=== PATIENT | male | born 1960 | race Caucasian/White ===

== ENCOUNTER → 2021-04-02 02:25 | Outpatient (CLI) | payer BC, SELFPAY ==
[2021-04-02 19:43] LABS: SARS-CoV-2 RNA PCR Negative
== END ==
PROVIDERS: Visit Provider Surgery
DX: Z01.812 Encounter for preprocedural laboratory examination (principal); Z20.822 Contact with and (suspected) exposure to COVID-19
CPT/HCPCS: C9803; U0003; U0005

== ENCOUNTER 2021-04-06 03:00 | Day surgery (SDC) | payer BC, SELFPAY ==
[2021-03-25 13:35] VITALS: BMI 37.6
[2021-04-06 07:04] VITALS: BP 143/78; PULSE 82; RESP 18; TEMP 36.7; O2SAT 94; BMI 38.8
[2021-04-06] MEDS: LACTATED RINGERS 1,000 ML 30 ML IV CONT (07:32)
[2021-04-06] MEDS: KETOROLAC 15 MG/ML VIAL (*BKC) IV PUSH (07:33)
[2021-04-06] MEDS: ACETAMINOPHEN 500 MG TABLET 1000 MG PO (07:33)
--- NOTE | 2021-04-06 07:37 | WPDANESEPPF ---
Anes - Initial Pre Proc Eval Procedure: Operation Date: 04/06/21 08:30 Proposed Procedures p Umbilical Hernia Repair with Mesh - Bryson Thomas MD Date/Time: 04/06/21 07:37 Surgeon: Bryson Thomas MD Pre Op Diagnosis: umbilical hernia Patient Data Age: 60 Gender: M Height: 1.8 m Weight: 126.4 kg Last Vital Signs Temp 36.7 C 04/06/21 07:04 Pulse 82 04/06/21 07:04 Resp 18 04/06/21 07:04 BP 143/78 H 04/06/21 07:04 Pulse Ox 94 04/06/21 07:04 Allergies Allergy/AdvReac Type Severity Reaction Status Date / Time Penicillins Allergy Mild unsure was Verified 04/06/21 06:57 told as a child Home Medications Medication Instructions Recorded Confirmed Type ibuprofen 600 mg PO Q6H PRN 03/25/21 04/06/21 History Patient hx anesthesia problems: none Family hx anesthesia problems: none [facility] Past Medical History Medical History (Updated 04/06/21 @ 07:37 by Garcia Dixon DO) CRISTEL (obstructive sleep apnea) borderline - no CPAP Surgical History Surgical History (Updated 03/21/21 @ 13:27 by Tanja De Leon [facility]) History of colonoscopy 5 yrs ago Family History Family History (Updated 03/04/21 @ 10:41 by Khushboo Clifford) Father Heart attack Malignant neoplasm of prostate Social History Social History Years smoked: 20 Smoking status: Current some day smoker Alcohol intake: current Drinks per week: 10 Substance use: never Substance use type: does not use Living arrangements: with family Spiritual care concerns: No Anes - Eval Final PreProcedure Day of Procedure 04/06/21 07:37 Patient weight: obese Heart: regular rate and rhythm Lungs: clear to auscultation and normal air movement Airway: Mallampati scale class II Neurological: alert and oriented Last oral intake: >/= 8 hours ASA classification: III Emergent: no Anesthetic plan: proceed Anesthesia type and monitoring: general GIVS and standard monitoring Informed Consent: The patient's anesthetic plan and its attendant risks and benefits were discussed with the patient/family/POA. Questions were solicited and answers provided to the satisfaction of the patient/family/POA.
--- NOTE | 2021-04-06 07:47 | SUR.PREOP ---
PT REQUESTING [place]ING BAND BE CUT OFF. VERY TIGHT. BILAT HANDS HAVE MULTIPLE CUTS. 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
--- NOTE | 2021-04-06 08:20 | WPDHPUPDATE1 ---
History and Physical Update Update Date/Time: 04/06/21 08:20 History and Physical has been reviewed, including an updated exam of the patient. There are NO changes in the patient's condition. Risks, benefits, and alternatives have been discussed and questions answered. Patient agrees to proceed with procedure.
[2021-04-06] MEDS: ceFAZolin 3 GM/D5W 100 ML 100 ML IVPB (08:33)
--- NOTE | 2021-04-06 09:14 | SUR.OPER ---
PARIETEX 6.6CM [id number] 2025-06-18. UMBILICAL
[2021-04-06 09:47] VITALS: BP 137/73; PULSE 79; RESP 18; TEMP 36.4; O2SAT 94
--- NOTE | 2021-04-06 09:49 | PM.PROC ---
Procedure Note - Detailed Date of procedure: 04/06/21 Pre-op diagnosis: umbilical hernia Umbilical hernia Post-op diagnosis: same Procedure performed: Umbilical hernia repair with 6.6 cm Parietex underlay mesh Description of procedure: Patient was taken to the operating room and IV sedation was administered. Prep and drape was carried out. The proposed incision along the upper margin of the umbilicus was marked on the skin. Local anesthetic was infiltrated into the skin and the deeper subcutaneous tissues. Incision was made and dissection was carried down through the skin and to the hernia sac. The sac was then dissected free from the umbilical skin and the surrounding subcutaneous tissues. It was dissected down to its neck. Additional local anesthetic was infiltrated into the neck and the fascia surrounding the neck of the hernia sac. The sac was then amputated at its neck. The subcutaneous was undermined around the hernia defect. Additional local was infiltrated around the fascia. I placed a finger inside the hernia defect and checked for any abdominal wall adhesions in the area. None were found. No other hernias were noted. A 6.6 cm Parietex igiugig was chosen. It was folded and placed in the defect. Once it symmetrically covered the defect, I placed cranial and caudal transfascial sutures of 0 Ethibond. These sutures were placed in such a fashion that, when tied, they would advance the edges of the hernia defect towards 1 another. These sutures were tied and had the desired effect. Right and left lateral trans fascial sutures of 0 Ethibond were then placed. I closed the hernia defect with [id number] mattress sutures of 0 Ethibond. The repair looked quite satisfactory. I then infiltrated additional local all around the areas of the repair. The umbilical skin was tacked to the fascia with 3 0 Vicryl suture. The subcutaneous was closed with 3 0 Vicryl. Subcuticular interrupted 4 O Vicryl skin stitches were placed. The skin was then closed with running 4 0 Monocryl subcuticular suture. Wound was dressed with Exofin surgical adhesive. The patient was awakened and taken to recovery in good condition. Counts were correct x2. Implants: 6.6 cm Parietex hernia mesh Anesthesia: MAC (G IV S) and local (0.5% Marcaine with Exparel) Surgeon: Bryson Thomas MD Automatic I Threading Machine Feeder: Tiffany COTRES Estimated blood loss (mL): 5 Drains: No Packing: No Pathology: none sent Complications: None Condition: stable Disposition: same day Findings: 18 millimeter hernia defect
[2021-04-06 10:15] VITALS: BP 140/68; PULSE 78; RESP 20; O2SAT 94
--- NOTE | 2021-04-06 10:25 | SUR.PHASEII ---
1000- assisted pt up to recliner family member in room.
[2021-04-06 10:45] VITALS: BP 127/75; PULSE 66; RESP 18
== END 2021-04-06 11:00 | disposition home or self-care (01) ==
PROVIDERS: PCP Internal Medicine; Visit Provider Surgery
PROC: (CPT 49585; principal; 2021-04-06 08:30)
DX: K42.9 Umbilical hernia without obstruction or gangrene (principal); G47.33 Obstructive sleep apnea (adult) (pediatric); F17.200 Nicotine dependence, unspecified, uncomplicated; E66.9 Obesity, unspecified; Z68.38 Body mass index [BMI] 38.0-38.9, adult
CPT/HCPCS: 49585; A9270; C1781; C9290; C9803; J0690; J1885; J2250; J2405; J2704; J3010; J7120; U0003; U0005

== ENCOUNTER 2024-09-15 12:33 | Outpatient (CLI) | payer MEDICARE, SELFPAY ==
--- NOTE | ~2024-09-15 | CT_ITS ---
EXAMINATION: CT soft tissue neck wo con DATE: 09/15/2024 13:34 INDICATION: Localized swelling, mass and lump, neck. TECHNIQUE: Computed tomography (CT) of the neck was performed without intravenous contrast. Automated exposure control and iterative reconstruction technique were employed. The dose-length product was 5 19.40 mGy-cm. COMPARISON: None FINDINGS: There is right high and mid internal jugular chain lymphadenopathy, right submandibular lym phadenopathy, and right spinal accessory chain lymphadenopathy. For example, a maggy mass in right hi gh internal jugular chain measures 5.9 x 3.2 cm. There is mild mucosal thickening in the paranasal si nuses. The mastoid air cells are normal. There is mild cervical spondylosis. IMPRESSION: 1. Right-sided cervical lymphadenopathy, consistent with metastatic disease. Ultrasound-guided core n eedle biopsy is recommended. Reviewed, dictated and finalized at location B. IMPRESSION: 1. Right-sided cervical lymphadenopathy, consistent with metastatic disease. Ul trasound-guided core needle biopsy is recommended.
== END 2024-09-15 12:34 | disposition home or self-care (01) ==
PROVIDERS: PCP Family Medicine; Visit Provider Family Medicine
DX: R22.1 Localized swelling, mass and lump, neck (principal)
CPT/HCPCS: 70490

== ENCOUNTER 2024-10-21 10:03 | Outpatient (CLI) | payer MEDICARE, SELFPAY ==
--- NOTE | ~2024-10-21 | PE_ITS ---
EXAMINATION: PET skull to mid thigh DATE: 10/21/2024 13:17 INDICATION: Right neck mass. TECHNIQUE: Blood glucose level was 115 mg/dL. 10.960 mCi of 18-fluorodeoxyglucose (18-FDG) was admini stered i.v. Low dose computed tomography (CT) images were acquired from the base of the brain to the proximal thighs for attenuation correction and anatomic localization. Automated exposure control was employed. Dose-length product (DLP) was 1496 mGy-cm. Positron emission tomography (PET) images were a cquired in the same distribution. COMPARISON: Neck CT 09/15/2024 FINDINGS: Head/neck: There is confluent right high and mid internal jugular chain lymphadenopathy measuring 8.0 x 4.2 cm with maximum SUV of 37.1. There is a mildly enlarged right submandibular node with increase d increased activity. There is a normal-sized right submandibular node with increased activity. There is a borderline-enlarged left mid internal jugular chain lymph node with increased activity. There i s a normal-sized left high internal jugular node with increased activity. There is mucosal thickening in the oropharynx bilaterally with increased activity. There is increased activity at the glottis an teriorly without abnormal CT correlate. Chest: There is a 1.7 cm nodule in right lung lower lobe with maximum SUV of 12.2. Calcified right hi lar lymph nodes are consistent with old edematous disease. No pleural effusion. Cardiomegaly is noted . No pericardial effusion. Abdomen/pelvis/proximal thighs: There is diffuse hepatic steatosis. Calcifications in the spleen are consistent with old granulomatous disease. The gallbladder, pancreas, adrenal glands, and right kidne y are normal. There is a 1.8 cm cyst in left kidney. There is diverticulosis of the colon without braden dence of diverticulitis. There are no dilated loops of bowel. The prostate is mildly enlarged. There are no pathologically enlarged lymph nodes. There is no free intraperitoneal fluid. There is no osseo us malignancy. IMPRESSION: 1. Bilateral cervical lymphadenopathy with increased activity, consistent with metastatic disease. 2. Mucosal thickening in the oropharynx with increased activity, which is indeterminate for primary m alignancy. 3. 1.7 cm nodule in right lung lower lobe with increased activity, which may be metastatic disease or primary bronchogenic carcinoma. CT-guided biopsy is recommended. Reviewed, dictated and finalized at location A. GE WEIGHER IMPRESSION: 1. Bilateral cervical lymphadenopathy with increased activity, consistent with metastatic disease. 2. Mucosal thickening in the oropharynx with increased activity, which is indet erminate for primary malignancy. 3. 1.7 cm nodule in right lung lower lobe with increased activity, which may be metastatic disease or primary bronchogenic carcinoma. CT-guided biopsy is sabrina mmended.
[2024-10-21 10:54] LABS: Glucose Point of Care 115 mg/dl (65-105)
== END 2024-10-21 10:04 | disposition home or self-care (01) ==
PROVIDERS: PCP Family Medicine
DX: R22.1 Localized swelling, mass and lump, neck (principal); C44.42 Squamous cell carcinoma of skin of scalp and neck
CPT/HCPCS: 78815; A9552

== ENCOUNTER 2025-06-01 01:53 | Day surgery (SDC) | payer MEDICARE, SELFPAY ==
[2025-05-20 15:34] VITALS: BMI 31.8
--- NOTE | 2025-05-20 15:45 | PC.NURSE ---
Patient requested to do the Golytely prep and asked for it to be sent into pharmacy. He states it is what he did last time and it was easy. Instructions sent to address verified by patient. Prescription sent per Dr. Mcdaniel for Golytely to pt pharmacy.
--- NOTE | 2025-05-20 15:47 | PC.NURSE ---
Spoke with __patient regarding medication _xarelto_. _Patient verbalizes understanding that the last dose is to be taken on 05/28/25-pt states oncologist told him 5 days prior to procedure and for 5 days after, I explained what Jonas Zhong requires and he can discuss with his oncologist which to follow and the Endoscopist will instruct them when to restart after the procedure.
--- OUTSIDE RECORDS SUMMARY | 2025-06-01 01:57 | XMS_ITS ---
Author Organization [facility] Address [address] [place] [address] Care Team Providers Care Accounting Software Specialist Name Role Phone Zeeshan Roberson MD Primary Care Provider Amy Elizabeth LCSW Unavailable Unavaila Zeeshan Warner MD Unavailable Bladimir Elise MD Unavailable [phone] Keith Barragan MD Unavailable + Active Problems Patient Care Coordination No te Formatting of this note migh t be different from the original. This is a 64-year-old male presenting to us at the request of Dr. Keith Barragan for evaluation of a pulmonary nodule. He has a medical history significant for hyperlipidemia. He is a former smoker. He recently presented with complaints of a slowly enlarging right neck mass that was 1st noted in July of 2024. At that time, he denied any voice changes, weight loss, dysphagia or pain. He initially underwent a CT of the neck that was performed at [facility] on 09/15/2024 that demonstrated multiple enlarged right cervical and parapharyngeal nodes with no clear primary. 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 He underwent a repeat ultrasound-guided core needle biopsy of a right level 2 cervical lymph node on 10/20/2024. 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 He underwent a PET scan on 10/21/2024 at [facility]. This was consulted at our facility. There is a bulky maggy conglomerate in the right neck centered at level 2 measuring at least 6.5 cm. This has a max SUV of 37.8. The conglomerate extends medially posterior to the mandible and exerts mass effect on the oropharynx, abutting the right palatine tonsil. The right carotid space is not distinctly separable from the conglomerate and the parapharyngeal fat is displaced anteriorly. There are some internal calcifications within the maggy conglomerate. There is additional markedly hypermetabolic cervical lymphadenopathy on the right levels 1b, 3, 4, and 5. There are also several moderately hypermetabolic left level 2 nodes and a mildly hypermetabolic left level 4/supraclavicular node. There was mild uptake in an 8 mm low left axillary node. Which is nonspecific. They are symmetric, moderate, activity in the bilateral palatine tonsils which is nonspecific. There is also focal uptake at the anterior commissure of the larynx. There was a 19 mm right lower lobe pulmonary nodule with an SUV of 12.2. There is focal mild uptake in the T11 vertebral body without clear CT correlate but not clearly related to degenerative disease. A similar focus is seen in S1. The patient was referred to have a CT-guided needle biopsy of the right lower lobe pulmonary nodule. This was scheduled for 11/10/2024 but was canceled due to no safe approach despite multiple breath hold attempts. It also appears that he was referred to IP for a bronchoscopic biopsy as well. It looks like this was scheduled for 11/25/2024 but was canceled. We will arrange for him to have pulmonary function testing and an updated chest CT. He is here for further surgical evaluation and discussion. Problem Noted Date Diagnosed Date Pleural effusion 02/14/2025 Snoring 01/30/2025 Assessment & Plan (01/30/2025 11:16 AM CDT): The patient presents with snoring, daytime hypersomnia and documented nocturnal arterial oxygen desaturations. He is currently using oxygen at 2 liters/minute via nasal cannula while sleeping. I have ordered a nocturnal polysomnogram with a split night protocol if necessary and no MSLT. He will follow up here in 2 months. BRAD (acute kidney injury) 01/29/2025 Assessment & Plan (01/29/2025 12:08 PM CDT): Unclear if he has been having worsening CKD Since early january he has been fluctuating with Cr from 1.6 to 1.2 , currently 1.3 Previous to that he had 0.7 to 1.2 in nov and dec. -would monitor OP and avoid nephrotoxins. (HFpEF) heart failure with preserved ejection fr action 01/29/2025 Assessment & Plan (01/29/2025 12:10 PM CDT): Recent echo 01/2025 with G1DD and EF of 65% Lower extremities swelling +2 to mid sierra. Received lasix 20 mg IV , UOP of 1700 cc Since he has nausea and decreased PO occasionally would placed him on lasix prn 40 mg for worsening leg edema or weight gain. OP follow up Shortness of breath 01/28/2025 Assessment & Plan (01/29/2025 12:11 PM CDT): -CRISTEL , obesity hypoventilation syndrome, mild hypervolemia can contribute. Here in the ED received low dose lasix iv , was placed on CPAP for short period of time. His workup unremarkable for ACS , he has chronic small to moderate pleural effusion which is likely related to his recent surgery. Currently comfortable with 92% on room air with rest. -can do 40 PO lasix PRN. -family is concerned about his hypoxia I already discussed with him and his over the phone that it is going to be difficult to get sleep study inpatient and that might take couple of days. I advised them to monitor his SPO2 only if he is symptomatic and return to ED if he has SOB or chest pain or worsening his general health, he has an appointment tomorrow with pulmonary for his sleep study. Encouraged to use o2 as needed. He might have some hypervolemia given his hx of HFpEF , his current weight 281 lbs , he told me his weight is around 275-280 , he can be prescribed lasix PRN 40 mg for worsening leg swelling or weight gain of 5 lbs over 2 days. Otherwise he can be monitored OP. Nausea 01/26/2025 Acute pulmonary embolism 01/23/2025 Lymphadenopathy, anterior cervical 01/21/2025 Hypoxia 01/21/2025 Class 3 severe obesity due t o excess calories without serious comorbidity with body mass index (BMI) of 40.0 to 44.9 in adult 01/21/2025 Acute respiratory failure with hypoxia Other acute pulmonary emboli sm, unspecified whether acute cor pulmonale present 01/20/2025 Assessment & Plan (01/29/2025 12:05 PM CDT): Cont eliquis for 6 months at least Acute hypoxic respiratory failure 01/20/2025 CRISTEL (obstructive sleep apnea) 01/20/2025 Assessment & Plan (03/31/2025 3:13 PM CDT): Due to the patient continuing to have a mask leak I will decrease the patient's BiPAP to an IPAP of 18 cm water pressure and EPAP of 14 cm water pressure. The patient is benefitting from CPAP therapy. The patient was recommended [id number] dry mouth products. 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:Clinical stage from 12/24/2024:Stage IV(cT1, cN3, pM1, p16+) - Signed by Zeeshan Pereira MD on 12/24/2024 HLD (hyperlipidemia) 12/09/2024 Assessment & Plan (12/09/2024 1:48 PM ICE MAKER): - monitor - cont home rosuvastatin Pulmonary nodule 12/04/2024 Assessment & Plan (12/10/2024 1:36 PM ICE MAKER): Robotic right lower lobe wedge, robotic right lower lobectomy and mediastinal lymph node sampling 12/08 - CT removed today - post pull removed - encourage IS - DVT ppx - PT eval/treat- recs for home with supervision - bowel regimen - post op Pain mgnt: scheduled tylenol and roscoe; PRN IV dilaudid and oxycodone - wean O2 to maintain sats > 90% - current smoker 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 Past Treatment and Therapy Plans Oncology Chemotherapy Treatment Plan Name Start Date Discontinue Date Treatment Medications Discontinue Reason Plan Provider Cycles CISplatin Weekly with Concurrent Radiation - Head and Neck 03/16/2025 CISplatin (PLATINOL)CISplati n (PLATINOL) IVPB in 250 mLdexAMETHasone (DECADRON) Therapy Complete Bladimir Elise MD 7 of 7 cycles started Radiation Treatments * Course [id number]/[id number] - 02/25/2025 Treatment Period Energy Fraction Dose Fractions Total Dose Plans Planned HN_Bilateral 01/05/2025 - 02/25/2025 200 25 / 7,000 HN_RESCAN 02/12/2025 - 02/25/2025 200 10 / 2,000 Reference Points Delivered DPV_HN 01/05/2025 - 02/25/2025 7,000 Lifetime Dose Tracking * Chemical Lifetime Dose Automatic Entry Manual Entr y DLP 1,997 mGycm 1,997 mGycm 0 mGycm
--- OUTSIDE RECORDS SUMMARY | 2025-06-01 01:57 | XMS_ITS | Clinical Summary ---
Author Organization [facility] Address [facility] [place] [address] Care Team Providers Care Doctor Of Nurse Anesthesia Name Role Phone Zeeshan Roberson MD Primary Care Provider Amy Elizabeth LCSW Unavailable Unavaila Zeeshan Warner MD Unavailable [phone] Bladimir Elise MD Unavailable [phone] Keith Barragan MD Unavailable + Allergies Active Allergy Reactions Criticality Noted Date Comments Iodinated Contrast Media Itching Low 10/02/2024 Penicillins Rash Medium 10/02/2024 Childhood allergy Medications rosuvastatin (CRESTOR) 5 mg tabletIndications: hyperlipidemia Take 1 tablet (5 mg total) by mouth nightly 09/09/20 24 Active betamethasone valerate (VALISONE) 0.1 % cream Apply topically daily as needed for irritation (eczema) 12/04/19 25 Active valACYclovir (VALTREX) 1 gram tablet Take 1 tablet (1,000 mg total) by mouth daily as needed 12/04/19 25 Active prochlorperazine (Compazine) 10 mg tabletIndications: Secondary and unspecified malignant neoplasm of lymph nodes of head, face and neck (HCC) Take 1 tablet (10 mg total) by mouth every 6 (six) hours as needed for nausea or vomiting Use first for nausea. 120 tablet 3 01/11/20 25 Active Additional Information Patient not taking.Reported on 05/11/2025 halobetasol (ULTRAVATE) 0.05 % cream Apply topically as needed 12/29/19 25 Active docusate sodium (COLACE) 100 mg capsuleIndications :constipation Take 1 capsule (100 mg total) by mouth 2 (two) times a day as needed for constipation Active acetaminophen 500 mg capsule Take 1 capsule (500 mg total) by mouth every 6 (six) hours as needed for mild pain (pain scale 1-4) Active amLODIPine (NORVASC) 2.5 mg tablet Take 1 tablet (2.5 mg total) by mouth daily 30 tablet 01/25/20 25 Active LORazepam (ATIVAN) 1 mg tablet Take 1 tablet (1 mg total) by mouth 2 (two) times a day as needed for anxiety (nausea) 60 tablet 01/28/20 25 Active Additional Information Patient not taking.Reported on 05/11/2025 furosemide (LASIX) 40 mg tablet Take 1 tablet (40 mg total) by mouth daily as needed (leg swelling , weight gain as instructed.) 30 tablet 01/30/20 25 Active ondansetron ODT (ZOFRAN-ODT) 4 mg disintegrating tablet Take 1 tablet (4 mg total) by mouth every 8 (eight) hours as needed for nausea or vomiting 20 tablet 1 01/31/20 25 Active Additional Information Patient not taking.Reported on 05/11/2025 potassium chloride ER (KLOR-CON) 20 mEq CR tablet Take 1 tablet (20 mEq total) by mouth daily 7 tablet 02/03/20 25 Active Additional Information Patient not taking.Reported on 05/11/2025 clotrimazole (MYCELEX) 10 mg eveline Take 1 tablet (10 mg total) by mouth 5 (five) times a day 35 Eveline 02/17/20 25 Active Additional Information Patient not taking.Reported on 05/11/2025 silver sulfadiazine (SILVADENE, SSD) 1 % cream Apply topically 3 (three) times a day 50 g 02/21/20 25 Active Additional Information Patient not taking.Reported on 05/11/2025 fluticasone propionate (FLONASE) 50 mcg/actuation nasal spray Administer 2 sprays into each nostril daily 16 g 3 02/25/20 25 025 Active Additional Information Patient not taking.Reported on 05/11/2025 oxyCODONE (ROXICODONE) 5 mg immediate release tabletIndications: Pain Take 1 tablet (5 mg total) by mouth every 6 (six) hours as needed for pain 30 tablet 02/27/20 Active Additional Information Patient not taking.Reported on 05/11/2025 al & mag hydroxide with simethicone-diphen hydramine-lidocain e (MAGIC MOUTHWASH) suspension 1-1-1 Swish and swallow 15 mL every 4 (four) hours as needed (mouth sores) 1260 mL 1 03/03/20 Active Additional Information Patient not taking.Reported on 05/11/2025 predniSONE (DELTASONE) 50 mg tablet Take 1 tablet (50 mg) by mouth 13 hours prior, 7 hours prior and [address] scan for contrast allergy 3 tablet 03/16/20 Active Additional Information Patient not taking.Reported on 05/11/2025 diphenhydrAMINE (BENADRYL) 50 mg capsule Take 1 capsule (50 mg) by mouth [address] scan for contrast allergy 1 capsule 03/16/20 Active Additional Information Patient not taking.Reported on 05/11/2025 rivaroxaban (XARELTO) 20 mg tablet Take 1 tablet (20 mg total) by mouth daily with breakfast 30 tablet 4 03/16/20 Active nutritional supplements liquid Take by mouth Active Active Problems Patient Care Coordination No te [...] of the neck that was performed at [facility] on 09/15/2024 that demonstrated multiple enlarged [...] underwent a PET scan on 10/21/2024 at [facility]. This was consulted at our facility. [...] from CPAP therapy. The patient was recommended dlcz-aph-xeussay dry mouth products. 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:Clinical stage from 12/24/2024:Stage IV(cT1, cN3, pM1, p16+) - Signed by Zeeshan Pereira MD on 12/24/2024 HLD (hyperlipidemia) 12/09/2024 Assessment & Plan (12/09/2024 1:48 PM LIGHT OUT EXAMINER): - monitor - cont home rosuvastatin Pulmonary nodule 12/04/2024 Assessment & Plan (12/10/2024 1:36 PM LIGHT OUT EXAMINER): Robotic right lower lobe wedge, robotic right [...] 12/02/2024 Assessment & Plan (12/09/2024 1:48 PM LIGHT OUT EXAMINER): - monitor - BMI 39.33 on admission - stereo operator screening Right lower lobe lung mass 11/13/2024 Neck mass 10/06/2024 Encounters Date Type Department Care Team Description 05/25/2025 7:42 AM CDT - 05/25/2025 11:59 PM CDT Hospital Encounter [facility] Medical Office Building [address] [address] Tonsil cancer (HCC) Discharge Disposition: Discharge to home or self care 05/13/2025 Orders Only [facility] Otol[facility]ology Head-Neck Division [address] [place] [address] [address] [place] [address] Keith Barragan MD Tonsil cancer (HCC) (Primary Dx); Lymph edema 05/11/2025 2:30 PM CDT Office Visit [facility] Pulmonary [address] [place] [address] Marie Simmons MD Other acute pulmonary embolism, unspecified whether acute cor pulmonale present (HCC) (Primary Dx); Pleural effusion on right; Diastolic congestive heart failure, unspecified HF chronicity (HCC); Primary hypertension 05/11/2025 Telephone [facility] Otolaryngology Head-Neck Division [address] [place] [phone] Sindy Mcgregor RN 05/07/2025 Orders Only [facility] Otolaryngology Head-Neck Division [address] [place] [phone] Keith Barragan MD Tonsil cancer (HCC) (Primary Dx); Lymph edema 05/04/2025 12:30 PM CDT Office Visit [facility] [address] [place] [address] [address] [place] [address] Bladimir Elise MD Tonsil cancer (HCC); Secondary and unspecified malignant neoplasm of lymph nodes of head, face and neck (HCC) 05/04/2025 12:00 PM CDT Lab [facility] at [address] [place] [address] Tonsil cancer (HCC); Secondary and unspecified malignant neoplasm of lymph nodes of head, face and neck (HCC) 05/04/2025 9:00 AM CDT Office Visit [facility] ENT [address] [facility] Medical Office Building [address] [place] [address] Keith Barragan MD Tonsil cancer (HCC) (Primary Dx) 04/27/2025 4:50 PM CDT - 04/27/2025 11:59 PM CDT Hospital Encounter [facility] [address] [place] [address] Tonsil cancer (HCC); Secondary and unspecified malignant neoplasm of lymph nodes of head, face and neck (HCC) Discharge Disposition: Discharge to home or self care 04/16/2025 Telephone [facility] Medical Office Building 2 Radiation Oncology [address] [place] [phone] Eugenia Garcia 04/10/[address] [facility] Head [facility] Neck Tumor Center [address] [place] [address] [place] [address] Yolanda Pereira, WHITNEY Navigation follow up-post tx check in; End Navigation 04/08/2025 8:30 AM CDT Office Visit [facility] Medical Office Building 2 Radiation Oncology [address] [place] [address] Zeeshan Pereira MD Tonsil cancer (HCC) (Primary Dx) 03/31/2025 3:00 PM CDT Office Visit [facility] Pulmonary [address] [place] [phone] Alana Aleman NP CRISTEL (obstructive sleep apnea) 03/31/[address] [place] [phone] Marie Simmons MD Request For Order(s) 03/31/[address] [place] [address] Ray Lowery MD Orders Only 03/16/2025 9:00 AM CDT Office Visit [facility] On[facility] [address] [place] [phone] Bladimir Elise MD Tonsil cancer (HCC) (Primary Dx); Secondary and unspecified malignant neoplasm of lymph nodes of head, face and neck (HCC) 03/16/2025 8:[address] [facility] at [address] [address] Tonsil cancer (HCC); Secondary and unspecified malignant neoplasm of lymph nodes of head, face and neck (HCC) 03/05/2025 Documentation [facility] Medical Office Building 2 Radiation Oncology [address] [place] [address] Maty Mcdonald, RN Med Management ([employer] medication needing updated) 03/03/2025 Telephone [facility] Oncology [address] [place] [phone] Janet Burns RN 03/02/2025 10:[address] [facility] at [address] [phone] Secondary and unspecified malignant neoplasm of lymph nodes of head, face and neck (HCC) (Primary Dx); Tonsil cancer (HCC) 03/02/2025 9:00 AM CDT Telemedicine [facility] Medical Office Building 2 Radiation Oncology [address] [place] [phone] Secondary and unspecified malignant neoplasm of lymph nodes of head, face and neck (HCC) (Primary Dx); Dehydration; Obesity, morbid (HCC) from Last 3 Months Immunizations Immunization Administration Dates Next Due Influenza, Quadrivalent, Spl it, Intramuscular 09/14/2014 Influenza, Quadrivalent, Spl it, Preservative Free, Intramuscular 09/19/2021,09/20/2020,08/25/2018 Influenza, Trivalent, High D ose, Split, Preservative Free, Intramuscular 12/09/2024 Influenza, Trivalent, Preser vative Free, Intramuscular 09/01/2015 Pneumococcal Conjugate Pcv20 01/21/2024 Surgical History Surgery Date Site/Laterality Comments US GUIDED BIOPSY LYMPH NODE SUPERFICIAL LEFT N/A LUNG SURGERY 12/08/2024 Medical History Medical History Date Comments Squamous cell cancer of scalp and skin of neck Hyperlipidemia Lung cancer (HCC) CRISTEL (obstructive sleep apnea) 01/20/2025 Nausea 01/26/2025 Family History Medical History Relation Name Comments Anesthesia problems Neg Hx Social History Tobacco Use Types Packs/Day Years Used Date Smoking Tobacco: Former Cigarettes 0.1 10.8 2 014 - 09/19/2024 Smokeless Tobacco: Never Tobacco Cessation:Counseling Given: Not Answered Comments:Casual smoker for 10 years [facility] Utilities Answer Date Recorded In the past 12 months has th e electric, gas, oil, or water company threatened to shut off services in your home? No 01/21/2025 Social Connection and Isolat ion Panel [NHANES] Answer Date Recorded In a typical week, how many times do you talk on the phone with family, friends, or neighbors? More than three times a week 01/21/2025 How often do you get togethe r with friends or relatives? More than three times a week 01/21/2025 How often do you attend [facility] or hindu services? More than 4 times per year 01/21/2025 Do you belong to any clubs o r organizations such as quaker groups, unions, fraternal or athletic groups, or school groups? Yes 01/21/2025 How often do you attend meet ings of the clubs or organizations you belong to? More than 4 times per year 01/21/2025 Are you , , di vorced, , never , or living with a partner? 01/21/2025 AUDIT-C Answer Date Recorded Q1: How often do you have a drink containing alcohol? 2-4 times a month 02/16/2025 Q2: How many drinks containi ng alcohol do you have on a typical day when you are drinking? Patient does not drink Q3: How often do you have si x or more drinks on one occasion? Monthly 02/16/2025 Overall Financial Resource Strain (CARDIA) Answe r Date Recorded How hard is it for you to pa y for the very basics like food, housing, medical care, and heating? Not hard at all 01/21/2025 PHQ-2 Answer Date Recorded PHQ-2 Total Score 0 10/07/2024 Hunger Vital Sign Answer Date Recorded Within the past 12 months, y ou worried that your food would run out before you got the money to buy more. Never true 01/22/20 25 Within the past 12 months, t he food you bought just didn't last and you didn't have money to get more. Never true 01/21/2025 PRAPARE - Transportation Answer Date Re corded In the past 12 months, has l ack of transportation kept you from medical appointments or from getting medications? No 03/2025 In the past 12 months, has l ack of transportation kept you from meetings, work, or from getting things needed for daily living? No 01/21/2025 Housing Stability Vital Sign Answer Brian e Recorded In the last 12 months, was t here a time when you were not able to pay the mortgage or rent on time? No 01/21/2025 In the past 12 months, how m any times have you moved where you were living? 0 01/21/2025 At any time in the past 12 m [facility], were you homeless or living in a residential (including now)? No 01/21/2025 Personal Safety Answer Date Recorded Have you ever been in or are you currently in a harmful physical or emotional relationship or is someone making you feel afraid or unsafe? Denies 02/23/2025 Sex and Gender Information Value Date Recorded Sex Assigned at Not on file Legal Sex Male 8:46 AM CDT Gender Identity Not on file Sexual Orientation Not on file Obstetrics History Last Filed Vital Signs Vital Sign Reading Time Taken Comments Blood Pressure 118/64 05/11/2025 2:12 PM CDT Pulse 78 05/11/2025 2:12 PM CDT Temperature 36.2 C (97.1 F) 05/11/2025 2:12 PM CDT Respiratory Rate 16 05/11/2025 2:12 PM CDT Oxygen Saturation 98% 05/11/2025 2:12 PM CDT Inhaled Oxygen Concentration - - Weight 106.6 kg (235 lb) 05/11/2025 2:12 PM CDT Height 180.3 cm (5' 11) 05/11/2025 2:12 PM CDT Body Mass Index 32.78 05/11/2025 2:12 PM CDT Plan of Treatment Health Maintenance Due Date Last Done Comments Colon Cancer Screening-Colonoscopy 1960 Hepatitis C Screening 1960 Prostate Cancer Screening-PSA 1958 DTaP/Tdap/Td Vaccine (1 - Tdap) 1969 Hepatitis B Screening 1976 Zoster Vaccine (1 of 2) 1977 Abdominal Aortic Aneurysm (A AA) Screen 2023 Well Visit 65+ 2023 Covid-19 Vaccine (2023-12 5 season) 2024 09/19/2021, 03/06/2021, 02/13/2021 Influenza Vaccine (#1) 2025 , 09/19/2021, 09/20/2020, Additional history exists Depression Screening 10/07/2025 10/07/2024 Fall Risk Assessment 01/23/2026 01/23/2025, 12/24/2024, 10/13/2024 Pneumococcal vaccine 65+ Completed 01/21/2024 Procedures Procedure Name Priority Date/Time Associated Diagnosis Comments PET/CT FDG SKULL TO THIGH Schedule Routine, Read Routine (OP Routine) 05/25/2025 9:49 AM CDT Tonsil cancer (HCC) POCT GLUCOSE DEVICE Routine 05/25/2025 8 :25 AM CDT EGFR Routine 05/04/2025 12:06 PM CDT Tonsil cancer (HCC) Secondary and unspecified malignant neoplasm of lymph nodes of head, face and neck (HCC) DIFFERENTIAL AUTO Routine 05/04/2025 12: 06 PM CDT Tonsil cancer (HCC) Secondary and unspecified malignant neoplasm of lymph nodes of head, face and neck (HCC) CBC WITH AUTO DIFFERENTIAL Routine 05/04/2025 12:06 PM CDT Tonsil cancer (HCC) Secondary and unspecified malignant neoplasm of lymph nodes of head, face and neck (HCC) COMPREHENSIVE METABOLIC PANEL Routine 05/04/2025 12:06 PM CDT Tonsil cancer (HCC) Secondary and unspecified malignant neoplasm of lymph nodes of head, face and neck (HCC) CT SOFT TISSUE NECK W CONTRAST Schedule Routine, Read Routine (OP Routine) 04/27/2025 5:16 PM CDT Tonsil cancer (HCC) Secondary and unspecified malignant neoplasm of lymph nodes of head, face and neck (HCC) CT CHEST W CONTRAST Schedule Routine, Read Routine (OP Routine) 04/27/2025 5:16 PM CDT Tonsil cancer (HCC) Secondary and unspecified malignant neoplasm of lymph nodes of head, face and neck (HCC) POCT CREATININE FOR CONTRAST EVALUATION Routine 04/27/2025 5:04 PM CDT EGFR Routine 03/16/2025 8:36 AM CDT Tonsil cancer (HCC) Secondary and unspecified malignant neoplasm of lymph nodes of head, face and neck (HCC) DIFFERENTIAL AUTO Routine 03/16/2025 8:3 6 AM CDT Tonsil cancer (HCC) Secondary and unspecified malignant neoplasm of lymph nodes of head, face and neck (HCC) CBC WITH AUTO DIFFERENTIAL Routine 03/16/2025 8:36 AM CDT Tonsil cancer (HCC) Secondary and unspecified malignant neoplasm of lymph nodes of head, face and neck (HCC) COMPREHENSIVE METABOLIC PANEL Routine 03/16/2025 8:36 AM CDT Tonsil cancer (HCC) Secondary and unspecified malignant neoplasm of lymph nodes of head, face and neck (HCC) from Last 3 Months Results * PET/CT FDG Skull to Thigh (05/25/2025 9:49 AM CDT) Anatomical Region Laterality Modality N/A Positron Emissio n Tomography (PET) 05/25/2025 9:59 AM CDT Narrative 05/25/2025 10:14 AM CDT EXAM DESCRIPTION: PET/CT FDG SKULL TO THIGH REASON FOR STUDY: Or pharyngeal cancer, 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 RADIOPHARMACEUTICAL: 10.1 mCi F-18 Fluorodeoxyglucose (FDG) via a right antecubital IV site. TECHNIQUE: The patient's fasting blood glucose level, measured by glucometer before injection of FDG, was 104 mg/dL. After intravenous administration of FDG, noncontrast CT images were obtained for attenuation correction and for fusion with emission PET images to allow for anatomical localization of PET findings. Emission PET images were then obtained. The area imaged spanned the region from the skull base to the thighs. The uptake time was approximately 60 minutes. SUV max was normalized to body weight. COMPARISON: PET-CT 10/21/2024. CT neck and CT chest 04/27/2025. FINDINGS: For reference, a region of interest of the ascending thoracic aorta has a maximal SUV of 3.8 . For reference, a region of interest of the right hepatic lobe of the liver has a maximal SUV of 5.3. Head: No abnormal FDG activity of the included brain parenchyma. Neck: Positive post treatment changes noted compared to the prior PET-CT. The infiltrative soft tissue involving right level II, the carotid space and extending to the oropharynx has substantially decreased in activity. The area of remaining soft tissue is now approximately 5.8 x 2.9 cm with maximal SUV 4.0, without a discrete intense site of uptake. Previously this was 6.8 x 4.6 cm with maximal SUV 37.8 as remeasured. Along the posterior margin there is a more discrete site of activity 1.5 cm with maximal SUV 4.3 most likely an adjacent lymph node. Post treatment changes are noted in the soft tissues with edema and induration. There is prominence of the palatine tonsils with the narrowed oropharynx. The previous hypermetabolic left supraclavicular and right supraclavicular lymph nodes have resolved. Chest: There is a new hypermetabolic anterior mediastinal lymph node adjacent to the right brachiocephalic vein, lateral to the brachiocephalic artery, 1 x 0.7 cm, maximal SUV 7.6. There is an additional small pre-vascular anterior mediastinal lymph node 0.5 cm anterior to the SVC and ascending thoracic aorta, maximal SUV 4.3. No other hypermetabolic thoracic lymph nodes. Postsurgical changes are seen from right lower lobectomy. No hypermetabolic right lung nodules. There is a small right pleural effusion. There is a left lower lobe pulmonary nodule which is hypermetabolic, this is new from the prior PET-CT, 1.0 x 1.0 cm, maximal SUV 5.6. Heart size is normal. There is no pericardial effusion. Abdomen and Pelvis: Liver and spleen demonstrate normal activity without focal abnormal FDG uptake. Mild hepatic steatosis. Gallbladder unremarkable. Pancreas and both adrenal glands demonstrate normal FDG activity. Normal excretion of FDG from the kidneys with expected accumulation of radiotracer in the urinary bladder. There are no hypermetabolic lymph nodes in the abdomen and pelvis. Prominent amount of fecal material is seen in the colon. Appendix unremarkable. Mild enlargement of the prostate. Physiologic bowel activity is present. Bones: Bone windows demonstrate no hypermetabolic acute or aggressive osseous lesions. There is diminished activity in the cervical spine most likely related to prior radiation. IMPRESSION: 1. Positive partial local post treatment response with substantial decrease in size and activity of the infiltrative right neck mass. There is some residual activity especially of a marginal lymph node which may reflect residual disease. 2. Resolution of the previous hypermetabolic bilateral supraclavicular lymph nodes. 3. Hypermetabolic anterior mediastinal lymph nodes most likely metastatic. 4. New hypermetabolic left lower lobe pulmonary nodule most likely metastatic. 5. Postsurgical changes of right lower lobectomy. THIS IS AN ELECTRONICALLY VERIFIED FINAL REPORT 05/25/2025 10:14 AM - Electronically signed by Shun Woods M.D. CH: SANAZ Report ID: [id number] Reading Location: [place] [address] Procedure Note Shun Woods Jr., MD - 05/25/2025 EXAM DESCRIPTION: PET/CT FDG SKULL TO THIGH REASON FOR STUDY: Or pharyngeal cancer, status post bcsavltyutsp90/21/2025 and radiation 02/25/2025, PET-CT for restaging and subsequent treatment strategy. 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 RADIOPHARMACEUTICAL: 10.1 mCi F-18 Fluorodeoxyglucose (FDG) via a right antecubital IV site. TECHNIQUE: The patient's fasting blood glucose level, measured byglucometer before injection of FDG, was 104 mg/dL. After intravenousadministration of FDG, noncontrast CT images were obtained for attenuation correction andfor fusion with emission PET images to allow for anatomical localization ofPET findings. Emission PET images were then obtained. The area imaged spannedthe region from the skull base to the thighs. The uptake time wasapproximately 60 minutes. SUV max was normalized to body weight. COMPARISON: PET-CT 10/21/2024. CT neck and CT chest 04/27/2025. FINDINGS: For reference, a region of interest of the ascending thoracicaorta has a maximal SUV of 3.8 . For reference, a region of interest of theright hepatic lobe of the liver has a maximal SUV of 5.3. Head: No abnormal FDG activity of the included brain parenchyma. Neck: Positive post treatment changes noted compared to the prior PET-CT. The infiltrative soft tissue involving right level II, the carotid spaceand extending to the oropharynx has substantially decreased in activity. Thearea of remaining soft tissue is now approximately 5.8 x 2.9 cm with maximalSUV 4.0, without a discrete intense site of uptake. Previously this was 6.8 x4.6 cm with maximal SUV 37.8 as remeasured. Along the posterior margin thereis a more discrete site of activity 1.5 cm with maximal SUV 4.3 most likely an adjacent lymph node. Post treatment changes are noted in the soft tissues with edema and induration. There is prominence of the palatine tonsilswith the narrowed oropharynx. The previous hypermetabolic left supraclavicularand right supraclavicular lymph nodes have resolved. Chest: There is a new hypermetabolic anterior mediastinal lymph nodeadjacent to the right brachiocephalic vein, lateral to the brachiocephalic artery,1 x 0.7 cm, maximal SUV 7.6. There is an additional small pre-vascularanterior mediastinal lymph node 0.5 cm anterior to the SVC and ascending thoracic aorta, maximal SUV 4.3. No other hypermetabolic thoracic lymph nodes. Postsurgical changes are seen from right lower lobectomy. Nohypermetabolic right lung nodules. There is a small right pleural effusion. There is aleft lower lobe pulmonary nodule which is hypermetabolic, this is new from the prior PET-CT, 1.0 x 1.0 cm, maximal SUV 5.6. Heart size is normal. Thereis no pericardial effusion. Abdomen and Pelvis: Liver and spleen demonstrate normal activity withoutfocal abnormal FDG uptake. Mild hepatic steatosis. Gallbladder unremarkable. Pancreas and both adrenal glands demonstrate normal FDG activity. Normal excretion of FDG from the kidneys with expected accumulation ofradiotracer in the urinary bladder. There are no hypermetabolic lymph nodes in theabdomen and pelvis. Prominent amount of fecal material is seen in the colon. Appendix unremarkable. Mild enlargement of the prostate. Physiologicbowel activity is present. Bones: Bone windows demonstrate no hypermetabolic acute or aggressiveosseous lesions. There is diminished activity in the cervical spine most likely related to prior radiation. IMPRESSION: 1. Positive partial local post treatment response with substantialdecrease in size and activity of the infiltrative right neck mass. There is some residual activity especially of a marginal lymph node which may reflect residual disease. 2. Resolution of the previous hypermetabolic bilateral supraclavicularlymph nodes. 3. Hypermetabolic anterior mediastinal lymph nodes most likelymetastatic. 4. New hypermetabolic left lower lobe pulmonary nodule most likely metastatic. 5. Postsurgical changes of right lower lobectomy. THIS IS AN ELECTRONICALLY VERIFIED FINAL REPORT 05/25/2025 10:14 AM - Electronically signed by Shun Woods M.D. CH: SANAZ Report ID: [id number] Reading Location: [id number] Zeeshan Pereira MD IMG PET PROCEDURES Final Resul t * POCT glucose (05/25/2025 8:25 AM CDT) Glucose, POC 104 70 - 199 mg/dL Comment:Testing performed by : [facility], [address] [place] [address]., [id number] Blood 05/25/2025 8:25 AM CDT 05/25/2025 8:25 AM CDT us Zeeshan Pereira MD LAB POCT ORDERABLES - DEVICE F inal Result Performing Organization Address City/[facility]/ZIP Co de Phone Number MARIE [address] [place] [address] * eGFR (05/04/2025 12:06 PM CDT) [facility] eGFR 74 >=60 mL/min/1. 73 m2 Comment: Interpretive Data Reference Interval Normal >/= 90 mL/min/1.73m2 Mildly decreased* 60 - 89 mL/min/1.73m2 Mildly to moderately decreased 45 - 59 mL/min/1.73m2 Moderately to severely decreased 30 - 44 mL/min/1.73m2 Severely decreased 15 - 29 mL/min/1.73m2 Kidney Failure < 15 mL/min/1.73m2 *Relative to young adult level Estimated glomerular filtration rate is determined by the 2020 CKD-EPI equation recommended by the National Kidney Foundation (A Unifying Approach to GFR Estimation: Recommendations of the NKF-ASK Task Force on Reassessing the Inclusion of Race in Diagnosing Kidney Disease, JASN 2020). The CKD-EPI equation should not be used for patients with unstable renal function and has not been validated in children and those over 70. Current interpretive data was last reviewed 2021. Testing performed by: [facility], [address] [place] [address]., [address] Blood 05/04/2025 12:0 6 PM CDT 05/04/2025 12:07 PM CDT us Bladimir Elise MD LAB BLOOD ORDERABLES Final Result Performing Organization Address City/[facility]/ZIP Co de Phone Number MARIE [address] [place] [address] * (ABNORMAL) Differential, auto (05/04/2025 12:06 PM CDT) Neutrophil abs 5.92 1.50 - 6.50 K/cumm Comment:Testing performed by : [address] [address] Imm gran abs 0.03 0.00 - 0.10 K/cumm MARIE Comment:Testing performed by : [address] [address] Lymphocyte abs 0.74(L) 0.80 - 3.30 K/cumm MARIE Comment:Testing performed by : [address] [address] Monocyte abs 0.83(H) 0.20 - 0.80 K/cumm [facility] Comment:Testing performed by : [address] [address] Eosinophil abs 0.27 0.00 - 0.50 K/cumm MARIE Comment:Testing performed by : [address] [address] Basophil abs 0.02 0.00 - 0.10 K/cumm [facility] Comment:Testing performed by : [address] [address] Neutrophil pct 75.7 % [facility] Comment: Interpretive Data Percent cell count reference ranges are not reported, since discordance with absolute values may lead to misinterpretation of CBC data. Current Interpretive Data was last revised on 2018. Testing performed by: [address] [address] Imm gran pct 0.4 % [facility] Comment: Interpretive Data Percent cell count reference ranges are not reported, since discordance with absolute values may lead to misinterpretation of CBC data. Current Interpretive Data was last revised on 2018. Testing performed by: [address] [address] Lymphocyte pct 9.5 % [facility] Comment: Interpretive Data Percent cell count reference ranges are not reported, since discordance with absolute values may lead to misinterpretation of CBC data. Current Interpretive Data was last revised on 2018. Testing performed by: [address] [address] Monocyte pct 10.6 % MARIE Comment: Interpretive Data Percent cell count reference ranges are not reported, since discordance with absolute values may lead to misinterpretation of CBC data. Current Interpretive Data was last revised on 2018. Testing performed by: [address] [address] Eosinophil pct 3.5 % MARIE Comment: Interpretive Data Percent cell count reference ranges are not reported, since discordance with absolute values may lead to misinterpretation of CBC data. Current Interpretive Data was last revised on 2018. Testing performed by: [address] [address] Basophil pct 0.3 % MARIE Comment: Interpretive Data Percent cell count reference ranges are not reported, since discordance with absolute values may lead to misinterpretation of CBC data. Current Interpretive Data was last revised on 2018. Testing performed by: [address] [address] Blood 05/04/2025 12:0 6 PM CDT 05/04/2025 12:07 PM CDT us Bladimir Elise MD LAB BLOOD ORDERABLES Final Result [facility] [address] [facility] [place] [address] * (ABNORMAL) CBC with auto differential (05/04/2025 12:06 PM CDT) WBC 7.81 3.80 - 9.90 K/cumm Comment:Testing performed by : [address] [address] Hgb 9.9(L) 13.0 - 17.5 g/dL MARIE Comment:Testing performed by : [address] [address] Hct 29.6(L) 38.9 - 50.3 % MARIE Comment:Testing performed by : [address] [place]., [address] Plt 206 150 - 400 K/cumm MARIE Comment:Testing performed by : [address] [address] MPV 9.0(L) 9.1 - 12.3 fL MARIE Comment:Testing performed by : [address] [address] RBC 3.33(L) 4.30 - 5.80 M/cumm MARIE Comment:Testing performed by : [address] [address] MCV 88.9 81.3 - 96.4 fL MARIE Comment:Testing performed by : [address] [address] MCH 29.7 27.1 - 33.3 pg MARIE Comment:Testing performed by : [address] [address] MCHC 33.4 32.3 - 35.7 g/dL MARIE Comment:Testing performed by : [address], [address] RDW CV 14.8 11.1 - 14.9 % MARIE Comment:Testing performed by : [address] [address] RDW SD 48.1 35.7 - 48.1 fL MARIE Comment:Testing performed by : [address] [address] NRBC abs 0.00 0.00 - 0.01 K/cumm MARIE Comment:Testing performed by : [address] [address] ANC Prelim 5.92 1.50 - 6.50 K/cumm MARIE Comment: Interpretive Data The rapid ANC is a preliminary automated count and may vary from the final ANC (Neut Abs) reported in the WBC differential that follows. Current interpretive data was last revised 2025. Testing performed by: [address] [address] Blood 05/04/2025 12:0 6 PM CDT 05/04/2025 12:07 PM CDT us Bladimir Elise MD LAB BLOOD ORDERABLES Final Result MARIE [address] [facility] Department [place] [address] * (ABNORMAL) Comprehensive metabolic panel (05/04/2025 12:06 PM CDT) Sodium 135 135 - 145 mmol/L Comment:Testing performed by : [address] [address] Potassium, pl 4.3 3.3 - 4.9 mmol/L MARIE Comment:Testing performed by : [address] [address] Chloride 97 97 - 110 mmol/L MARIE Comment:Testing performed by : [address] [address] CO2 27 22 - 32 mmol/L MARIE Comment:Testing performed by : [address] [address] Anion gap 11 2 - 15 mmol/L MARIE Comment:Testing performed by : [address] [address] BUN 27(H) 6 - 25 mg/dL MARIE Comment:Testing performed by : [address] [address] Creatinine 1.10 0.80 - 1.30 mg/dL MARIE Comment:Testing performed by : [address] [address] Glucose 88 70 - 199 mg/dL MARIE Comment: Interpretive Data Fasting glucose >/= 126 mg/dl is diagnostic for diabetes. Fasting is defined as no caloric intake for at least 8 hours. Fasting glucose between 100 mg/dl to 125 mg/dl is diagnostic of prediabetes. In a patient with classic symptoms of hyperglycemia or hyperglycemic crisis, a random glucose >/= 200 mg/dl is diagnostic for diabetes. In the absence of unequivocal hyperglycemia, results should be confirmed by repeat testing. The classification and Diagnosis of Diabetes Diabetes Care 2022; 46: S19-S40. Current interpretive data was last revised 2022. Testing performed by: [facility], [address] [place] [address]., [address] Calcium 9.8 8.5 - 10.3 mg/dL MARIE Comment:Testing performed by : [address] [address] Bilirubin, total 0.5 0.1 - 1.2 mg/dL MARIE Comment:Testing performed by : [address] [address] Protein, pl 6.9 6.5 - 8.5 g/dL MARIE Comment:Testing performed by : [address], [place]., [address] Albumin 4.3 3.5 - 5.0 g/dL MARIE Comment:Testing performed by : [address] [address] Alk phos 86 40 - 130 Units/L MARIE Comment:Testing performed by : [address] [address] ALT 14 7 - 55 Units/L MARIE Comment:Testing performed by : [address] [address] AST 13 10 - 50 Units/L MARIE Comment:Testing performed by : [address] [address] Blood 05/04/2025 12:0 6 PM CDT 05/04/2025 12:07 PM CDT us Bladimir Elise MD LAB BLOOD ORDERABLES Final Result [facility] [address] [facility] Department [place] [address] * CT chest with contrast (04/27/2025 5:16 PM CDT) Anatomical Region Laterality Modality Body N/A Computed Tomogra phy 05/02/2025 7:32 AM CDT Narrative 05/02/2025 7:45 AM CDT EXAM DESCRIPTION: CT CHEST W CONTRAST REASON FOR STUDY: 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 Reconstructed coronal and sagittal MPR images reviewed. All images stored on PACS. Automated exposure control was used as a dose optimization technique for this examination. CONTRAST TYPE/DOSE: 100mL of IOVERSOL 350 MG IODINE/ML INTRAVENOUS SYRINGE injected via intravenous COMPARISON: CT chest dated January 20, 2025 FINDINGS: LUNGS: No nodules or masses. No pneumonia. PLEURA: Trace right pleural effusion. No left pleural effusion. Scattered subsegmental atelectasis and scarring most significant in lung bases. Postsurgical changes of right lower lobectomy with associated volume loss and scarring is seen, unchanged. MEDIASTINUM/PAUL: No identified masses or abnormal nodes. HEART: Heart size is normal with no pericardial effusion. VASCULATURE: No thoracic aortic aneurysm. AXILLA: No adenopathy. CHEST WALL: No masses. No subcutaneous air. HARDWARE/LINES/TUBES: None. UPPER ABDOMEN: No significant abnormality. MUSCULOSKELETAL: Diffuse idiopathic skeletal hyperostosis. OTHER: No other significant abnormality. IMPRESSION: 1. Postsurgical changes of right lower lobectomy with associated volume loss and scarring, unchanged. 2. Trace right pleural effusion. 3. No evidence of metastatic disease to the chest. THIS IS AN ELECTRONICALLY VERIFIED FINAL REPORT 05/02/2025 7:45 AM - Electronically signed by Jose Alfredo Lucero M.D. 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 Reconstructed coronal and sagittal MPR images reviewed. All images storedon PACS. Automated exposure control was used as a dose optimizationtechnique for this examination. CONTRAST TYPE/DOSE: 100mL of IOVERSOL 350 MG IODINE/ML INTRAVENOUS SYRINGE injected via intravenous COMPARISON: CT chest dated January 20, 2025 FINDINGS: LUNGS: No nodules or masses. No pneumonia. PLEURA: Trace right pleural effusion. No left pleural effusion.Scattered subsegmental atelectasis and scarring most significant in lung bases. Postsurgical changes of right lower lobectomy with associated volume lossand scarring is seen, unchanged. MEDIASTINUM/PAUL: No identified masses or abnormal nodes. HEART: Heart size is normal with no pericardial effusion. VASCULATURE: No thoracic aortic aneurysm. AXILLA: No adenopathy. CHEST WALL: No masses. No subcutaneous air. HARDWARE/LINES/TUBES: None. UPPER ABDOMEN: No significant abnormality. MUSCULOSKELETAL: Diffuse idiopathic skeletal hyperostosis. OTHER: No other significant abnormality. IMPRESSION: 1. Postsurgical changes of right lower lobectomy with associated volumeloss and scarring, unchanged. 2. Trace right pleural effusion. 3. No evidence of metastatic disease to the chest. THIS IS AN ELECTRONICALLY VERIFIED FINAL REPORT 05/02/2025 7:45 AM - Electronically signed by Jose Alfredo Lucero M.D. 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 Reconstructed MPR images reviewed. All images stored on PACS. Automated exposure control was used as a dose optimization technique for this examination. CONTRAST TYPE/DOSE: 100mL of IOVERSOL 350 MG IODINE/ML INTRAVENOUS SYRINGE injected via intravenous COMPARISON: Soft tissue neck CT dated 09/15/2024 whole-body PET-CT dated 12/22/2023. FINDINGS: Partially imaged right parietal 0.6 cm extra-axial enhancement (series 2, image 1). The bilateral globes are symmetric. There is mucosal thickening in the bilateral ethmoid air cells. Bilateral maxillary sinus air-fluid levels can be seen with acute sinusitis in the proper clinical scenario. Chronic nasal bone deformity. The nasal septum has a biconvex curvature with left-sided spur. A few opacified bilateral mastoid air cells. The temporomandibular joints are symmetrically placed. The zygomatic arches are intact. The bilateral parotid glands enhance symmetrically. The submandibular glands also grossly enhance symmetrically. The dental amalgam related streak artifact limits the assessment of the adjacent structures including the oral cavity and oropharynx. There is prominence of the bilateral palatine tonsils abutting the uvula at midline. Portions of the supraglottic larynx and glottic region is not well assessed due to gross patient motion and vocal cords being adducted. The remainder of the airway is midline and patent. The right level 2 conglomerate adenopathy/soft tissue focus has decreased in size when compared to the previous CT neck dated 09/15/2024. Accurate size comparison is limited as the previous study was performed without intravenous contrast and there is gross extracapsular spread of disease with loss of fascial planes. On the current study grossly measures up to 3.3 x 3.7 cm and previously grossly up to 4.6 x 5.6 cm. Medially there is loss of fascial planes with the adjacent right carotid sheath, anteriorly a portion abuts the submandibular gland, posterolaterally abuts the sternocleidomastoid muscle. There is involvement of the right parapharyngeal space. Elsewhere in the neck the smaller lymph nodes have decreased in size, for example right level 30.5 cm lymph node previously measured up to 1.1 cm, right level 2B 0.6 cm lymph node previously measured up to 1.5 cm, left level 2B 0.3 cm lymph node previously measured up to 0.9 cm. Atherosclerotic changes in the bilateral carotid vasculature. The right internal jugular vein at the level of the right level 2 conglomerate mass is not contrast filled in keeping with high-grade stenosis or occlusion. Lung apices without a focal pneumonic consolidation. Multilevel cervical spine degenerative changes are again seen. IMPRESSION: 1. The right level 2 ill-defined conglomerate has decreased in size but not resolved when compared to the previous CT neck dated 09/15/2024. 2. Multiple additional smaller bilateral cervical chain lymph nodes are no longer enlarged by CT size criteria. 3. Partially imaged right parietal 0.6 cm enhancement could be a meningioma but is not entirely imaged for complete characterization. If this is a new finding for the patient then a contrast-enhanced MRI could be obtained. 4. Other findings as above. THIS IS AN ELECTRONICALLY VERIFIED FINAL REPORT 05/04/2025 8:14 AM - Electronically signed by Jayden Martinez D.O. 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 Reconstructed MPR images reviewed. All images stored on PACS. Automated exposure control was used as a dose optimization technique for this examination. CONTRAST TYPE/DOSE: 100mL of IOVERSOL 350 MG IODINE/ML INTRAVENOUSSYRINGE injected via intravenous COMPARISON: Soft tissue neck CT dated 09/15/2024 whole-body PET-CT dated 12/22/2023. FINDINGS: Partially imaged right parietal 0.6 cm extra-axial enhancement (series 2, image 1). The bilateral globes are symmetric. There is mucosal thickening in the bilateral ethmoid air cells. Bilateral maxillary sinus air-fluid levelscan be seen with acute sinusitis in the proper clinical scenario. Chronicnasal bone deformity. The nasal septum has a biconvex curvature with left-sided spur. A few opacified bilateral mastoid air cells. The temporomandibular jointsare symmetrically placed. The zygomatic arches are intact. The bilateral parotid glands enhance symmetrically. The submandibularglands also grossly enhance symmetrically. The dental amalgam related streak artifact limits the assessment of the adjacent structures including the oral cavity and oropharynx. There is prominence of the bilateral palatine tonsils abutting the uvula atmidline. Portions of the supraglottic larynx and glottic region is not wellassessed due to gross patient motion and vocal cords being adducted. The remainderof the airway is midline and patent. The right level 2 conglomerate adenopathy/soft tissue focus has decreasedin size when compared to the previous CT neck dated 09/15/2024. Accuratesize comparison is limited as the previous study was performed withoutintravenous contrast and there is gross extracapsular spread of disease with loss of fascial planes. On the current study grossly measures up to 3.3 x 3.7 cmand previously grossly up to 4.6 x 5.6 cm. Medially there is loss of fascial planes with the adjacent right carotid sheath, anteriorly a portion abutsthe submandibular gland, posterolaterally abuts the sternocleidomastoidmuscle. There is involvement of the right parapharyngeal space. Elsewhere in the neck the smaller lymph nodes have decreased in size, for example right level 30.5 cm lymph node previously measured up to 1.1 cm,right level 2B 0.6 cm lymph node previously measured up to 1.5 cm, left level 2B0.3 cm lymph node previously measured up to 0.9 cm. Atherosclerotic changes in the bilateral carotid vasculature. The right internal jugular vein at the level of the right level 2 conglomerate massis not contrast filled in keeping with high-grade stenosis or occlusion. Lung apices without a focal pneumonic consolidation. Multilevel cervical spine degenerative changes are again seen. IMPRESSION: 1. The right level 2 ill-defined conglomerate has decreased in size butnot resolved when compared to the previous CT neck dated 09/15/2024. 2. Multiple additional smaller bilateral cervical chain lymph nodes areno longer enlarged by CT size criteria. 3. Partially imaged right parietal 0.6 cm enhancement could be ameningioma but is not entirely imaged for complete characterization. If this is anew finding for the patient then a contrast-enhanced MRI could be obtained. 4. Other findings as above. THIS IS AN ELECTRONICALLY VERIFIED FINAL REPORT 05/04/2025 8:14 AM - Electronically signed by Jayden Martinez D.O. AP: KVNG Report ID: [id number] Reading Location: [place] [address] us Bladimir Elise MD IMG CT PROCEDURES Final Res ult * (ABNORMAL) POCT creatinine for contrast evaluation (04/27/2025 5:04 PM CDT) Creatinine POC 1.40(H) 0.80 - 1.30 mg/dL Comment:Testing performed by : [facility], [address] [place] [address]., [id number] Blood 04/27/2025 5:04 PM CDT 04/27/2025 5:04 PM CDT us Bladimir Elise MD POINT OF CARE TEST ORDERABL ES Final Result [facility] [address] [facility] Department [place] [address] * eGFR (03/16/2025 8:36 AM CDT) eGFR 74 >=60 mL/min/1. 73 m2 Comment: Interpretive Data Reference Interval Normal >/= 90 mL/min/1.73m2 Mildly decreased* 60 - 89 mL/min/1.73m2 Mildly to moderately decreased 45 - 59 mL/min/1.73m2 Moderately to severely decreased 30 - 44 mL/min/1.73m2 Severely decreased 15 - 29 mL/min/1.73m2 Kidney Failure < 15 mL/min/1.73m2 *Relative to young adult level Estimated glomerular filtration rate is determined by the 2020 CKD-EPI equation recommended by the National Kidney Foundation (A Unifying Approach to GFR Estimation: Recommendations of the NKF-ASK Task Force on Reassessing the Inclusion of Race in Diagnosing Kidney Disease, JASN 2020). The CKD-EPI equation should not be used for patients with unstable renal function and has not been validated in children and those over 70. Current interpretive data was last reviewed 2021. Testing performed by: [address] [address] Blood 03/16/2025 8:36 AM CDT 03/16/2025 8:38 AM CDT Bladimir Elise MD LAB BLOOD ORDERABLES Final Result [facility] Department [place] [address] * (ABNORMAL) Differential, auto (03/16/2025 8:36 AM CDT) Neutrophil abs 2.62 1.50 - 6.50 K/cumm Comment:Testing performed by : [address] [address] Imm gran abs 0.05 0.00 - 0.10 K/cumm MARIE Comment:Testing performed by : [address] [address] Lymphocyte abs 0.67(L) 0.80 - 3.30 K/cumm MARIE Comment:Testing performed by : [address] [address] Monocyte abs 0.43 0.20 - 0.80 K/cumm MARIE Comment:Testing performed by : [address] [address] Eosinophil abs 0.02 0.00 - 0.50 K/cumm MARIE Comment:Testing performed by : [address] [address] Basophil abs 0.01 0.00 - 0.10 K/cumm MARIE Comment:Testing performed by : [address] [address] Neutrophil pct 69.0 % [facility] Comment: Interpretive Data Percent cell count reference ranges are not reported, since discordance with absolute values may lead to misinterpretation of CBC data. Current Interpretive Data was last revised on 2018. Testing performed by: [address] [address] Imm gran pct 1.3 % [facility] Comment: Interpretive Data Percent cell count reference ranges are not reported, since discordance with absolute values may lead to misinterpretation of CBC data. Current Interpretive Data was last revised on 2018. Testing performed by: [address] [address] Lymphocyte pct 17.6 % [facility] [place] Comment: Interpretive Data Percent cell count reference ranges are not reported, since discordance with absolute values may lead to misinterpretation of CBC data. Current Interpretive Data was last revised on 2018. Testing performed by: [address] [address] Monocyte pct 11.3 % [facility] [place] Comment: Interpretive Data Percent cell count reference ranges are not reported, since discordance with absolute values may lead to misinterpretation of CBC data. Current Interpretive Data was last revised on 2018. Testing performed by: [address] [address] Eosinophil pct 0.5 % [facility] [place] Comment: Interpretive Data Percent cell count reference ranges are not reported, since discordance with absolute values may lead to misinterpretation of CBC data. Current Interpretive Data was last revised on 2018. Testing performed by: [address] [address] Basophil pct 0.3 % [facility] [place] Comment: Interpretive Data Percent cell count reference ranges are not reported, since discordance with absolute values may lead to misinterpretation of CBC data. Current Interpretive Data was last revised on 2018. Testing performed by: [address] [address] Blood 03/16/2025 8:36 AM CDT 03/16/2025 8:38 AM CDT us Bladimir Elise MD LAB BLOOD ORDERABLES Final Result [facility] [address] [facility] Department [place] [address] * (ABNORMAL) CBC with auto differential (03/16/2025 8:36 AM CDT) WBC 3.80 3.80 - 9.90 K/cumm Comment:Testing performed by : [address] [address] Hgb 10.5(L) 13.0 - 17.5 g/dL MAIRE Comment:Testing performed by : [address] [address] Hct 31.7(L) 38.9 - 50.3 % MARIE Comment:Testing performed by : [address] [address] Plt 305 150 - 400 K/cumm MARIE Comment:Testing performed by : [address] [address] MPV 8.9(L) 9.1 - 12.3 fL MARIE Comment:Testing performed by : [address] [address] RBC 3.84(L) 4.30 - 5.80 M/cumm MARIE Comment:Testing performed by : [address] [address] MCV 82.6 81.3 - 96.4 fL MARIE Comment:Testing performed by : [address] [address] MCH 27.3 27.1 - 33.3 pg MARIE SANCHEZ Comment:Testing performed by : [address] [address] MCHC 33.1 32.3 - 35.7 g/dL MARIE SANCHEZ Comment:Testing performed by : [address] [address] RDW CV 16.4(H) 11.1 - 14.9 % MARIE SANCHEZ Comment:Testing performed by : [address] [address] RDW SD 48.6(H) 35.7 - 48.1 fL MARIE SANCHEZ Comment:Testing performed by : [address] [address] NRBC abs 0.00 0.00 - 0.01 K/cumm MARIE SANCHEZ Comment:Testing performed by : [address] [address] ANC Prelim 2.62 1.50 - 6.50 K/cumm MARIE SANCHEZ Comment: Interpretive Data The rapid ANC is a preliminary automated count and may vary from the final ANC (Neut Abs) reported in the WBC differential that follows. Current interpretive data was last revised 2025. Testing performed by: [address] [address] Blood 03/16/2025 8:36 AM CDT 03/16/2025 8:38 AM CDT us Bladimir Elise MD LAB BLOOD ORDERABLES Final Result MARIE [address] [facility] Department [place] [address] * (ABNORMAL) Comprehensive metabolic panel (03/16/2025 8:36 AM CDT) Sodium 136 135 - 145 mmol/L Comment:Testing performed by : [address] [address] Potassium, pl 3.6 3.3 - 4.9 mmol/L MARIE SANCHEZ Comment:Testing performed by : [address] [address] Chloride 99 97 - 110 mmol/L MARIE SANCHEZ Comment:Testing performed by : [address] [address] CO2 24 22 - 32 mmol/L MARIE SANCHEZ Comment:Testing performed by : [address] [address] Anion gap 13 2 - 15 mmol/L MARIE SANCHEZ Comment:Testing performed by : [address] [address] BUN 36(H) 6 - 25 mg/dL MARIE Comment:Testing performed by : [address] [address] Creatinine 1.10 0.80 - 1.30 mg/dL MARIE Comment:Testing performed by : [address] [address] Glucose 161 70 - 199 mg/dL MARIE Comment: Interpretive Data Fasting glucose >/= 126 mg/dl is diagnostic for diabetes. Fasting is defined as no caloric intake for at least 8 hours. Fasting glucose between 100 mg/dl to 125 mg/dl is diagnostic of prediabetes. In a patient with classic symptoms of hyperglycemia or hyperglycemic crisis, a random glucose >/= 200 mg/dl is diagnostic for diabetes. In the absence of unequivocal hyperglycemia, results should be confirmed by repeat testing. The classification and Diagnosis of Diabetes Diabetes Care 2021; 46: S19-S40. Current interpretive data was last revised 2022. Testing performed by: [address] [address] Calcium 9.9 8.5 - 10.3 mg/dL MARIE Comment:Testing performed by : [address] [address] Bilirubin, total 0.2 0.1 - 1.2 mg/dL MARIE Comment:Testing performed by : [address] [address] Protein, pl 7.2 6.5 - 8.5 g/dL MARIE Comment:Testing performed by : [address] [address] Albumin 4.1 3.5 - 5.0 g/dL MARIE Comment:Testing performed by : [address] [address] Alk phos 76 40 - 130 Units/L MARIE Comment:Testing performed by : [address] [address] ALT 41 7 - 55 Units/L MARIE Comment:Testing performed by : [address] [address] AST 25 10 - 50 Units/L MARIE SANCHEZ Comment:Testing performed by : [facility], [address] [place]., [address] Blood 03/16/2025 8:36 AM CDT 03/16/2025 8:38 AM CDT us Bladimir Elise MD LAB BLOOD ORDERABLES Final Result MARIE SANCHEZ [address] [facility] Department [place] [address] from Last 3 Months Insurance [facility] MEDICARE [facility] Advance Directives For more information, please contact: [phone] * Full Code (Latest Code Status on File) Date Activated Date Inactivated Comments 01/29/2025 9:14 AM 01/29/2025 4:08 PM * Full Code Date Activated Date Inactivated Comments 01/20/2025 5:19 PM 01/23/2025 9:38 PM * Full Code Date Activated Date Inactivated Comments 12/08/2024 9:31 PM 12/11/2024 5:46 PM Care Teams Doctor Of Nurse Anesthesia Relationship Specialty Start Date End Date Zeeshan Roberson MD [address] [facility] [address] [place] [address] PCP - General Family Medicine 09/19/24 Amy Elizabeth LCSW Oil Field Laborer 10/06/24 Zeeshan Pereira MD [address] [facility] [address] [place] [address] Radiation Oncologist Radiation Oncology 12/24/24 Bladimir Elise MD 49[address] [facility] [address] [place] [address] Medical Oncologist/Pharmacy Billing Adjudicator Medical Oncology 12/24/24 Keith Barragan MD 4921 [facility] DEPT OTOLARYNGOLOGY, [facility] [address] [place] [address] Surgeon Otolaryngology 12/24/24
--- OUTSIDE RECORDS SUMMARY | 2025-06-01 01:57 | XMS_ITS | Encounter Summary ---
Author Organization [facility] Address [address] [place] [address] Phone Care Team Providers Care Client Relations Associate Name Role Phone Zeeshan Roberson MD Primary Care Provider Yolanda Pereira RN Unavailable Unavailable Amy Elizabeth LCSW Unavailable Unavaila Zeeshan Warner MD Unavailable [phone] Bladimir Elise MD Unavailable [phone] Keith Barragan MD Unavailable + Encounter Details Date Type Department Care Team (Late st Contact Info) Description 01/05/2025 Documentation [facility] Oncology [address] [facility] [address] [place] [id number] Bony Rangel, DO [address] [facility] [address] [place] [address] Social History Tobacco Use Types Packs/Day Years Used Date Smoking Tobacco: Former Cigarettes 0.1 10.8 2 014 - 09/19/2024 Smokeless Tobacco: Never Comments:Casual smoker for [address] [facility] Utilities Answer Date Recorded In the past 12 months has e electric, gas, oil, or water company threatened to shut off services in your home? No 10/07/2024 Social Connection and Isolat ion Panel [NHANES] Answer Date Recorded In a typical week, how many times do you talk on the phone with family, friends, or neighbors? More than three times a week 10/07/2024 How often do you get togethe r with friends or relatives? More than three times a week 10/07/2024 How often do you attend chur ch or confucianist services? More than 4 times per year 10/07/2024 Do you belong to any clubs o r organizations such as orthodoxy groups, unions, fraternal or athletic groups, or school groups? Yes 10/07/2024 How often do you attend meet ings of the clubs or organizations you belong to? More than 4 times per year 10/07/2024 Are you , , di vorced, , never , or living with a partner? 10/07/2024 AUDIT-C Answer Date Recorded Q1: How often do you have a drink containing alc ohol? 2-4 times a month 12/08/2024 Q2: How many drinks containi ng alcohol do you have on a typical day when you are drinking? 5 or 6 12/08/2024 Q3: How often do you have si x or more drinks on one occasion? Monthly 12/08/2024 Overall Financial Resource Strain (CARDIA) Answe r Date Recorded How hard is it for you to pa y for the very basics like food, housing, medical care, and heating? Not hard at all 10/07/2024 PHQ-2 Answer Date Recorded PHQ-2 Total Score 0 10/07/2024 Hunger Vital Sign Answer Date Recorded Within the past 12 months, y ou worried that your food would run out before you got the money to buy more. Never true 10/07/20 24 Within the past 12 months, t he food you bought just didn't last and you didn't have money to get more. Never true 10/07/2024 PRAPARE - Transportation Answer Date Re corded In the past 12 months, has l ack of transportation kept you from medical appointments or from getting medications? No 09/19 In the past 12 months, has l ack of transportation kept you from meetings, work, or from getting things needed for daily living? No 10/07/2024 Housing Stability Vital Sign Answer Brian e Recorded In the last 12 months, was t here a time when you were not able to pay the mortgage or rent on time? No 10/07/2024 In the past 12 months, how m any times have you moved where you were living? 0 10/07/2024 At any time in the past 12 m [facility], were you homeless or living in a fpc (including now)? No 10/07/2024 Personal Safety Answer Date Recorded Have you ever been in or are you currently in a harmful physical or emotional relationship or is someone making you feel afraid or unsafe? Denies 12/08/2024 Sex and Gender Information Value Date Recorded Sex Assigned at Not on file Legal Sex Male 8:46 AM CDT Gender Identity Not on file Sexual Orientation Not on file documented as of this encounter Plan of Treatment Not on file documented as of this encounter Visit Diagnoses Not on filedocumented in this encounter Additional Health Concerns Infection Onset Date Last Indicated Resolved Time COVID: Suspected 01/20/2025 01/20/2025 01/20/2025 1:29 PM FURNITURE P[employer]ER COVID: Suspected 01/28/2025 01/28/2025 01/28/2025 1:17 PM CDT COVID: Suspected 02/23/2025 02/23/2025 02/23/2025 7:45 PM CDT documented as of this encounter Care Teams Client Relations Associate Relationship Specialty Start Date End Date Zeeshan Roberson MD [address] [place] [address] PCP - General Family Medicine 09/19/24 Yolanda Pereira, WHITNEY Nurse Navigator 10/06/24 04/09/25 Amy Elizabeth LCSW Dermatology Nurse Practitioner 10/06/24 Zeeshan Pereira MD [address] [place] [address] [address] [place] [address] Radiation Oncologist Radiation Oncology 12/24/24 Bladimir Elise MD [address] [facility] [address] [place] [address] Medical Oncologist/Network Security Consultant Medical Oncology 12/24/24 Keith Barragan MD 4921 [facility] DEPT OTOLARYNGOLOGY, [address] [place] [address] [address] Surgeon Otolaryngology 12/24/24 documented as of this encounter
--- OUTSIDE RECORDS SUMMARY | 2025-06-01 01:57 | XMS_ITS | Referral Summary ---
Author Organization [facility] Address [address] [place] [address] Care Team Providers Care Aws Software Development Engineer Name Role Phone Zeeshan Roberson MD Primary Care Provider Amy Elizabeth LCSW Unavailable Unavaila Zeeshan Warner MD Unavailable [phone] Bladimir Elise MD Unavailable Keith Barragan MD Unavailable + Encounters Date Type Department Care Team Description 05/25/2025 7:42 AM CDT - 05/25/2025 11:59 PM CDT Hospital Encounter [facility] [address] [address] Tonsil cancer (HCC) Discharge Disposition: Discharge to home or self care 05/13/2025 Orders Only [facility] Department of Otolaryngology Head-Neck Division [address] [place] [phone] Keith Barragan MD Tonsil cancer (HCC) (Primary Dx); Lymph edema 05/11/2025 Telephone [facility] Department of Otolaryngology Head-Neck Division [address] [place] [phone] Sindy Mcgregor RN 05/11/2025 2:30 PM CDT Office Visit [facility] [address] [place] [phone] Marie Simmons MD Other acute pulmonary embolism, unspecified whether acute cor pulmonale present (HCC) (Primary Dx); Pleural effusion on right; Diastolic congestive heart failure, unspecified HF chronicity (HCC); Primary hypertension 05/07/2025 Orders Only [facility] Department of Otolaryngology Head-Neck Division [address] [facility] Floor 5 [place] [address] Keith Barragan MD Tonsil cancer (HCC) (Primary Dx); Lymph edema 05/04/2025 9:00 AM CDT Office Visit [facility]) - [facility] [address] [facility] Building 2 [address] [place] [address] Keith Barragan MD Tonsil cancer (HCC) (Primary Dx) 05/04/2025 12:00 PM CDT Lab [facility] [address] [place] [address] Tonsil cancer (HCC); Secondary and unspecified malignant neoplasm of lymph nodes of head, face and neck (HCC) 05/04/2025 12:30 PM CDT Office Visit [facility] Physicians [facility] Oncology [address] [facility] [address] [place] [phone] Bladimir Elise MD Tonsil cancer (HCC); Secondary and unspecified malignant neoplasm of lymph nodes of head, face and neck (HCC) 04/27/2025 4:50 PM CDT - 04/27/2025 11:59 PM CDT Hospital Encounter [facility] [address] [place] [address] Tonsil cancer (HCC); Secondary and unspecified malignant neoplasm of lymph nodes of head, face and neck (HCC) Discharge Disposition: Discharge to home or self care 04/16/2025 Telephone [facility] 2 Radiation Oncology [facility] [place] [address] Eugenia Garcia 04/10/2025 Telephone [facility] [address] [facility] 4th [place] [address] Yolanda Pereira, WHITNEY Navigation follow up-post tx check in; End Navigation 04/08/2025 8:30 AM CDT Office Visit [facility] 2 Radiation Oncology [address] [place] [phone] Zeeshan Pereira MD Tonsil cancer (HCC) (Primary Dx) 03/31/2025 Telephone [facility] Pulmonary [address] [place] [address] Marie Simmons MD Request For Order(s) 03/31/2025 Telephone [facility] [address] [place] [address] Ray Lowery MD Orders Only 03/31/2025 3:00 PM CDT Office Visit [facility] [address] [place] [address] Alana Aleman NP CRISTEL (obstructive sleep apnea) 03/16/2025 8:30 AM CDT Lab [facility] at [address] [address] Tonsil cancer (HCC); Secondary and unspecified malignant neoplasm of lymph nodes of head, face and neck (HCC) 03/16/2025 9:00 AM CDT Office Visit [facility] Oncology [address] [place] [phone] Bladimir Elise MD Tonsil cancer (HCC) (Primary Dx); Secondary and unspecified malignant neoplasm of lymph nodes of head, face and neck (HCC) 03/05/2025 Documentation [facility] 2 Radiation Oncology [address] [place] [phone] Maty Mcdonald, WHITNEY Med Management ([employer] medication needing updated) 03/03/2025 Telephone [facility] Oncology [address] [place] [address] [address] [place] [address] Janet [place] RN 03/02/2025 10:15 AM CDT Infusion [facility] [address] [facility] [address] [place] [phone] Secondary and unspecified malignant neoplasm of lymph nodes of head, face and neck (HCC) (Primary Dx); Tonsil cancer (HCC) 03/02/2025 9:00 AM CDT Telemedicine [facility] 2 Radiation Oncology [address] [place] [address] Secondary and unspecified malignant neoplasm of lymph nodes of head, face and neck (HCC) (Primary Dx); Dehydration; Obesity, morbid (HCC) from Last 3 Months Allergies Active Allergy Reactions Criticality Noted Date [...] as needed for pain 30 tablet 02/27/20 25 Active Additional Information Patient not taking.Reported on 05/11/2025 al & mag hydroxide with simethicone-diphen hydramine-lidocain e (MAGIC MOUTHWASH) suspension 1-1-1 Swish and swallow 15 mL every 4 (four) hours as needed (mouth sores) 1260 mL 1 03/03/20 25 Active Additional Information Patient not taking.Reported [...] of the neck that was performed at [facility] on 09/15/2024 that demonstrated multiple enlarged right [...] underwent a PET scan on 10/21/2024 at [facility]. This was consulted at our facility. There [...] from CPAP therapy. The patient was recommended qptt-htz-tolofny dry mouth products. 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:Clinical stage from 12/24/2024:Stage IV(cT1, cN3, pM1, p16+) - Signed by Zeeshan Pereira MD on 12/24/2024 HLD (hyperlipidemia) 12/09/2024 Assessment & Plan (12/09/2024 1:48 PM GREEN JOBS TRAINER): - monitor - cont home rosuvastatin Pulmonary nodule 12/04/2024 Assessment & Plan (12/10/2024 1:36 PM GREEN JOBS TRAINER): Robotic right lower lobe wedge, robotic right [...] 12/02/2024 Assessment & Plan (12/09/2024 1:48 PM GREEN JOBS TRAINER): - monitor - BMI 39.33 on admission - digital hardware design engineer screening Right lower lobe lung mass 11/13/2024 Neck mass 10/06/2024 Immunizations Immunization Administration Dates Next Due Influenza, Quadrivalent, Spl it, Intramuscular 09/14/2014 Influenza, Quadrivalent, Spl it, Preservative Free, Intramuscular 09/19/2021,09/20/2020,08/25/2018 Influenza, Trivalent, High D ose, Split, Preservative Free, Intramuscular 12/09/2024 Influenza, Trivalent, Preser vative Free, Intramuscular 09/01/2015 Pneumococcal Conjugate Pcv20 01/21/2024 Social History Tobacco Use Types Packs/Day Years Used Date Smoking Tobacco: Former Cigarettes 0.1 10.8 2 014 - 09/19/2024 Smokeless Tobacco: Never Tobacco Cessation:Counseling Given: Not Answered Comments:Casual smoker for 10 years [facility] Utilities Answer Date Recorded In the past 12 months has [employer], [employer], or water [employer] threatened to shut off services in your [...] week 01/21/2025 How often do you attend chur ch or protestant services? More than 4 times per year 01/21/2025 Do you belong to any clubs o r organizations such as presybeterian groups, unions, fraternal or athletic groups, or [...] money to buy more. Never true 01/22/20 Within the past 12 months, t he [...] any time in the past [address] [facility], were you homeless or living in a fci (including now)? No 01/21/2025 Personal Safety Answer [...] on file Sexual Orientation Not on file Last Filed Vital Signs Vital Sign Reading [...] 05/11/2025 2:12 PM CDT Plan of Treatment Not on file Procedures Procedure Name Priority Date/Time Associated Diagnosis [...] Electronically signed by Shun Woods M.D. CH: Report ID: [id number] Reading Location: [id number] Procedure Note Shun Woods Jr., MD - 05/25/2025 EXAM DESCRIPTION: PET/CT FDG SKULL TO THIGH REASON FOR STUDY: Or pharyngeal cancer, status post dajreyosweea33/21/2025 and radiation 02/25/2025, PET-CT for restaging and [...] Electronically signed by Shun Woods M.D. CH: Report ID: [id number] Reading Location: [id number] us Zeeshan Pereira MD IMG PET PROCEDURES Final Resul t * POCT glucose (05/25/2025 8:25 AM CDT) Pathologist [facility] Glucose, POC 104 70 - 199 mg/dL Comment:Testing performed by : [facility], [address] [place] [address]., [address] Blood 05/25/2025 8:25 AM CDT 05/25/2025 8:25 AM CDT us Zeeshan Pereira MD LAB POCT ORDERABLES - DEVICE F inal Result [facility] [address] [facility] [place] [address] * eGFR (05/04/2025 12:06 PM CDT) Pathologist [facility] eGFR 74 >=60 mL/min/1. 73 m2 Comment: [...] Inclusion of Race in Diagnosing Kidney Disease, KARANSN 2020). The CKD-EPI equation should not be used for patients with unstable renal function and has not been validated in children and those over 70. Current interpretive data was last reviewed 2021. Testing performed by: [address] [address] Blood 05/04/2025 12:0 6 PM CDT 05/04/2025 12:07 PM CDT us Bladimir Elise MD LAB BLOOD ORDERABLES Final Result MARIE [address] [facility] [place] [address] * (ABNORMAL) Differential, auto (05/04/2025 12:06 PM CDT) Neutrophil abs 5.92 1.50 - 6.50 K/cumm Comment:Testing performed by : [address] [address] Imm gran abs 0.03 0.00 - 0.10 K/cumm MARIE Comment:Testing performed by : [address] [address] Lymphocyte abs 0.74(L) 0.80 - 3.30 K/cumm MARIE Comment:Testing performed by : [address] [address] Monocyte abs 0.83(H) 0.20 - 0.80 K/cumm MARIE Comment:Testing performed by : [address] [address] Eosinophil abs 0.27 0.00 - 0.50 K/cumm MARIE Comment:Testing performed by : [address] [address] Basophil abs 0.02 0.00 - 0.10 K/cumm MARIE Comment:Testing performed by : [address] [address] Neutrophil pct 75.7 % MARIE Comment: Interpretive Data Percent cell count reference ranges are not reported, since discordance with absolute values may lead to misinterpretation of CBC data. Current Interpretive Data was last revised on 2018. Testing performed by: [address] [address] Imm gran pct 0.4 % [facility] Comment: Interpretive Data Percent cell count reference ranges are not reported, since discordance with absolute values may lead to misinterpretation of CBC data. Current Interpretive Data was last revised on 2018. Testing performed by: [address] [address] Lymphocyte pct 9.5 % [facility] Comment: Interpretive Data Percent cell count reference ranges are not reported, since discordance with absolute values may lead to misinterpretation of CBC data. Current Interpretive Data was last revised on 2018. Testing performed by: [address] [address] Monocyte pct 10.6 % [facility] Comment: Interpretive Data Percent cell count reference ranges are not reported, since discordance with absolute values may lead to misinterpretation of CBC data. Current Interpretive Data was last revised on 2018. Testing performed by: [address] [address] Eosinophil pct 3.5 % [facility] Comment: Interpretive Data Percent cell count reference ranges are not reported, since discordance with absolute values may lead to misinterpretation of CBC data. Current Interpretive Data was last revised on 2018. Testing performed by: [address] [address] Basophil pct 0.3 % [facility] Comment: Interpretive Data Percent cell count reference ranges are not reported, since discordance with absolute values may lead to misinterpretation of CBC data. Current Interpretive Data was last revised on 2018. Testing performed by: [address] [address] Blood 05/04/2025 12:0 6 PM CDT 05/04/2025 12:07 PM CDT Bladimir Elise MD LAB BLOOD ORDERABLES Final Result MARIE [address] [facility] [place] [address] * (ABNORMAL) CBC with auto differential (05/04/2025 12:06 PM CDT) [facility] WBC 7.81 3.80 - 9.90 K/cumm Comment:Testing performed by : [address] [address] Hgb 9.9(L) 13.0 - 17.5 g/dL MARIE Comment:Testing performed by : [address] [address] Hct 29.6(L) 38.9 - 50.3 % MARIE Comment:Testing performed by : [address] [address] Plt 206 150 - 400 K/cumm MARIE Comment:Testing performed by : [address] [address] MPV 9.0(L) 9.1 - 12.3 fL MARIE Comment:Testing performed by : [address] [address] RBC 3.33(L) 4.30 - 5.80 M/cumm MARIE Comment:Testing performed by : [address] [address] MCV 88.9 81.3 - 96.4 fL MARIE Comment:Testing performed by : [address] [address] MCH 29.7 27.1 - 33.3 pg MARIE Comment:Testing performed by : [address] [address] MCHC 33.4 32.3 - 35.7 g/dL MARIE Comment:Testing performed by : [address] [address] RDW CV 14.8 11.1 - 14.9 % MARIE Comment:Testing performed by : [address] [address] RDW SD 48.1 35.7 - 48.1 fL MARIE SANCHEZ Comment:Testing performed by : [address] [address] NRBC abs 0.00 0.00 - 0.01 K/cumm MARIE SANCHEZ Comment:Testing performed by : [address] [address] ANC Prelim 5.92 1.50 - 6.50 K/cumm MARIE SANCHEZ Comment: Interpretive Data The rapid ANC is a preliminary automated count and may vary from the final ANC (Neut Abs) reported in the WBC differential that follows. Current interpretive data was last revised 2025. Testing performed by: [address] [address] Blood 05/04/2025 12:0 6 PM CDT 05/04/2025 12:07 PM CDT us Bladimir Elise MD LAB BLOOD ORDERABLES Final Result AMRIE [address] [facility] [place] [address] * (ABNORMAL) Comprehensive metabolic panel (05/04/2025 12:06 PM CDT) Sodium 135 135 - 145 mmol/L Comment:Testing performed by : [address] [address] Potassium, pl 4.3 3.3 - 4.9 mmol/L AMRIE SANCHEZ Comment:Testing performed by : [address] [address] Chloride 97 97 - 110 mmol/L MARIE SANCHEZ Comment:Testing performed by : [address] [address] CO2 27 22 - 32 mmol/L MARIE SANCHEZ Comment:Testing performed by : [address] [address] Anion gap 11 2 - 15 mmol/L MARIE SANCHEZ Comment:Testing performed by : [address] [address] BUN 27(H) 6 - 25 mg/dL MARIE SANCHEZ Comment:Testing performed by : [address] [address] Creatinine 1.10 0.80 - 1.30 mg/dL MARIE Comment:Testing performed by : [address] [address] Glucose 88 70 - 199 mg/dL MARIE [...] was last revised 2022. Testing performed by: [address] [address] Calcium 9.8 8.5 - 10.3 mg/dL MARIE Comment:Testing performed by : [address] [address] Bilirubin, total 0.5 0.1 - 1.2 mg/dL MARIE Comment:Testing performed by : [address] [address] Protein, pl 6.9 6.5 - 8.5 g/dL MARIE Comment:Testing performed by : [address] [address] Albumin 4.3 3.5 - 5.0 g/dL MARIE Comment:Testing performed by : [address] [address] Alk phos 86 40 - 130 Units/L MARIE Comment:Testing performed by : [address] [address] ALT 14 7 - 55 Units/L MARIE Comment:Testing performed by : [address], [address] AST 13 10 - 50 Units/L MARIE Comment:Testing performed by : [address] [address] Blood 05/04/2025 12:0 6 PM CDT 05/04/2025 12:07 PM CDT Bladimir Elise MD LAB BLOOD ORDERABLES Final Result MARIE [address] [facility] [place] [address] * CT chest with contrast (04/27/2025 5:16 [...] AM - Electronically signed by Jose Alfredo RUSSO: KARAN Report ID: [id number] Reading Location: [id number] Procedure Note Jose Alfredo Lucero MD - [...] Alfredo Lucero M.D. JA: KARAN Report ID: [id number] Reading Location: [id number] us Bladimir Elise MD IMG CT PROCEDURES [...] Jayden Martinez D.O. AP: AP Report ID: [id number] Reading Location: [place] [address] Procedure Note Jayden Martinez, DO - 05/04/2025 EXAM DESCRIPTION: CT SOFT TISSUE NECK W CONTRAST REASON FOR STUDY: Restaging tonsil ca with lung mets Restaging tonsil ca with lung mets, Tonsil cancer, Secondary andunspecified malignant neoplasm of lymph nodes of head, face and neck, diagnosed Right lower lobectomy TECHNIQUE: Post IV contrast [...] Jayden Martinez D.O. AP: KVNG Report ID: [id number] Reading Location: [place] [address] Bladimir Elise MD IM CT PROCEDURES Final Res ult * (ABNORMAL) POCT creatinine for contrast evaluation (04/27/2025 5:04 PM CDT) Creatinine POC 1.40(H) 0.80 - 1.30 mg/dL Comment:Testing performed by : [facility], [address] [place] [address], [place]., [address] Blood 04/27/2025 5:04 PM CDT 04/27/2025 5:04 PM CDT Bladimir Elise MD POINT OF CARE TEST ORDERABL ES Final Result Performing Organization Address [facility] de Phone Number MARIE [address] [place] [employer] [address] * eGFR (03/16/2025 8:36 AM CDT) eGFR [...] was last reviewed 2021. Testing performed by: [address] [address] Blood 03/16/2025 8:36 AM CDT 03/16/2025 8:38 AM CDT Bladimir Elise MD LAB BLOOD ORDERABLES Final Result Performing Organization Address [facility] Co de Phone Number MARIE [facility] [place] [address] * (ABNORMAL) Differential, auto (03/16/2025 8:36 AM CDT) Neutrophil abs 2.62 1.50 - 6.50 K/cumm Comment:Testing performed by : [address] [address] Imm gran abs 0.05 0.00 - 0.10 K/cumm MARIE SANCHEZ Comment:Testing performed by : [address], [place]., [address] Lymphocyte abs 0.67(L) 0.80 - 3.30 K/cumm MARIE Comment:Testing performed by : [address], [place]., [address] Monocyte abs 0.43 0.20 - 0.80 K/cumm MARIE Comment:Testing performed by : [address], [place]., [address] Eosinophil abs 0.02 0.00 - 0.50 K/cumm MARIE Comment:Testing performed by : [address], [place]., [address] Basophil abs 0.01 0.00 - 0.10 K/cumm MARIE Comment:Testing performed by : [address] [address] Neutrophil pct 69.0 % MARIE Comment: Interpretive Data Percent cell count reference ranges are not reported, since discordance with absolute values may lead to misinterpretation of CBC data. Current Interpretive Data was last revised on 2018. Testing performed by: [address] [address] Imm gran pct 1.3 % [employer] [facility] Comment: Interpretive Data Percent cell count reference ranges are not reported, since discordance with absolute values may lead to misinterpretation of CBC data. Current Interpretive Data was last revised on 2018. Testing performed by: [address] [address] Lymphocyte pct 17.6 % [employer] [facility] [facility] Comment: Interpretive Data Percent cell count reference ranges are not reported, since discordance with absolute values may lead to misinterpretation of CBC data. Current Interpretive Data was last revised on 2018. Testing performed by: [address] [address] Monocyte pct 11.3 % [facility] Comment: Interpretive Data Percent cell count reference ranges are not reported, since discordance with absolute values may lead to misinterpretation of CBC data. Current Interpretive Data was last revised on 2018. Testing performed by: [address] [address] Eosinophil pct 0.5 % MARIE SANCHEZ Comment: Interpretive Data Percent cell count reference ranges are not reported, since discordance with absolute values may lead to misinterpretation of CBC data. Current Interpretive Data was last revised on 2018. Testing performed by: [address] [address] Basophil pct 0.3 % MARIE SANCHEZ Comment: Interpretive Data Percent cell count reference ranges are not reported, since discordance with absolute values may lead to misinterpretation of CBC data. Current Interpretive Data was last revised on 2018. Testing performed by: [address] [address] Blood 03/16/2025 8:36 AM CDT 03/16/2025 8:38 AM CDT us Bladimir Elise MD LAB BLOOD ORDERABLES Final Result Performing Organization Address City/State/[facility] Co de Phone Number MARIE [facility] [place] [address] * (ABNORMAL) CBC with auto differential (03/16/2025 8:36 AM CDT) WBC 3.80 3.80 - 9.90 K/cumm Comment:Testing performed by : [address] [address] Hgb 10.5(L) 13.0 - 17.5 g/dL MARIE SANCHEZ Comment:Testing performed by : [address] [address] Hct 31.7(L) 38.9 - 50.3 % MARIE SANCHEZ Comment:Testing performed by : [address] [address] Plt 305 150 - 400 K/cumm MARIE SANCHEZ Comment:Testing performed by : [address] [address] MPV 8.9(L) 9.1 - 12.3 fL MARIE SANCHEZ Comment:Testing performed by : [address] [address] RBC 3.84(L) 4.30 - 5.80 M/cumm MARIE Comment:Testing performed by : [address] [address] MCV 82.6 81.3 - 96.4 fL MARIE Comment:Testing performed by : [address] [address] MCH 27.3 27.1 - 33.3 pg MARIE Comment:Testing performed by : [address] [address] MCHC 33.1 32.3 - 35.7 g/dL MARIE Comment:Testing performed by : [address] [address] RDW CV 16.4(H) 11.1 - 14.9 % MARIE Comment:Testing performed by : [address] [address] RDW SD 48.6(H) 35.7 - 48.1 fL MARIE Comment:Testing performed by : [address] [address] NRBC abs 0.00 0.00 - 0.01 K/cumm MARIE Comment:Testing performed by : [address] [address] ANC Prelim 2.62 1.50 - 6.50 K/cumm MARIE Comment: Interpretive Data The rapid ANC is a preliminary automated count and may vary from the final ANC (Neut Abs) reported in the WBC differential that follows. Current interpretive data was last revised 2025. Testing performed by: [address] [address] Blood 03/16/2025 8:36 AM CDT 03/16/2025 8:38 AM CDT us Bladimir Elise MD LAB BLOOD ORDERABLES Final Result [facility] [address] [facility] Department of Laboratories [place], [place] [id number] * (ABNORMAL) Comprehensive metabolic panel (03/16/2025 8:36 AM CDT) Sodium 136 135 - 145 mmol/L Comment:Testing performed by : [address] [address] Potassium, pl 3.6 3.3 - 4.9 mmol/L MARIE Comment:Testing performed by : [address], [place]., [address] Chloride 99 97 - 110 mmol/L MARIE Comment:Testing performed by : [address], [place]., [address] CO2 24 22 - 32 mmol/L MARIE Comment:Testing performed by : [address] [address] Anion gap 13 2 - 15 mmol/L MARIE Comment:Testing performed by : [address], [place]., [address] BUN 36(H) 6 - 25 mg/dL MARIE Comment:Testing performed by : [address] [address] Creatinine 1.10 0.80 - 1.30 mg/dL MARIE Comment:Testing performed by : [address] [address] Glucose 161 70 - 199 mg/dL MARIE [...] was last revised 2022. Testing performed by: [address] [address] Calcium 9.9 8.5 - 10.3 mg/dL MARIE Comment:Testing performed by : [address], [place]., [address] Bilirubin, total 0.2 0.1 - 1.2 mg/dL MARIE SANCHEZ Comment:Testing performed by : [facility], [address] [place] [address]., [address] Protein, pl 7.2 6.5 - 8.5 g/dL MARIE SANCHEZ Comment:Testing performed by : [facility], [address] [place] [address]., [address] Albumin 4.1 3.5 - 5.0 g/dL MARIE Comment:Testing performed by : [address] [address] Alk phos 76 40 - 130 Units/L MARIE Comment:Testing performed by : [address] [address] ALT 41 7 - 55 Units/L MARIE Comment:Testing performed by : [address] [address] AST 25 10 - 50 Units/L MARIE Comment:Testing performed by : [address] [address] Blood 03/16/2025 8:36 AM CDT 03/16/2025 8:38 AM CDT Bladimir Elise MD LAB BLOOD ORDERABLES Final Result MARIE 0 [facility] [place] [address] from Last 3 Months Insurance [employer] MEDICARE GOLD [facility] Advance Directives For more information, please contact: [phone] * Full Code (Latest Code Status on File) Date Activated Date Inactivated Comments 01/29/2025 9:14 AM 01/29/2025 4:08 PM * Full Code Date Activated Date Inactivated Comments 01/20/2025 5:19 PM 01/23/2025 9:38 PM * Full Code Date Activated Date Inactivated Comments 12/08/2024 9:31 PM 12/11/2024 5:46 PM Care Teams [employer] Engineer Relationship Specialty Start Date End Date Zeeshan Roberson MD [id number] [place] [address] PCP - General Family Medicine 09/19/24 Amy Elizabeth LCSW Supervisor Powdered Sugar 10/06/24 Zeeshan Pereira MD [address] [facility] [address] [place] [address] Radiation Oncologist Radiation Oncology 12/24/24 Bladimir Elise MD [address] [facility] [address] [place] [address] Medical Oncologist/Occupational Ther Medical Oncology 12/24/24 Keith Barragan MD [address] [facility], [address] [address] Surgeon Otolaryngology 12/24/24
--- NOTE | 2025-06-01 07:59 | P.PNAN_ITS ---
Anes - Initial Pre Proc Eval Procedure: Operation Date: 06/01/25 10:30 Proposed Procedures p Screening Colonoscopy - Keith Mcdaniel DO Date/Time: 06/01/25 07:59 Surgeon: Keith Mcdaniel DO Pre Op Diagnosis: Neoplasm screening Patient Data Age: 64 Gender: M Height: 1.8 m Weight: 103.5 kg Allergies Allergy/AdvReac Type Severity Reaction Status Date / Time Penicillins Allergy Mild Rash Verified 06/01/25 09:28 iohexol (From contrast - CT, Allergy Itching Verified 06/01/25 09:28 X-RAY) hayfever Allergy Mild Sneezing Uncoded 06/01/25 09:28 Home Medications ?Medication ?Instructions ?Recorded ?Confirmed ?Type [id number]-qkuhabcvntzqg-[id number] 1 cap PO Q8H PRN pain #30 caps 02/16/25 05/20/25 Rx 50 mg-300 mg-40 mg capsule rosuvastatin 5 mg tablet 5 mg PO DAILY #90 tabs 02/23/25 06/01/25 Rx ondansetron 4 mg disintegrating 4 mg PO 02/25/25 04/22/25 History tablet peg 3350-electrolytes 236 240 ml PO Q15M #4,000 mL 05/20/25 Rx gram-22.74 gram-6.74 gram-5.86 gram solution (Golytely) rivaroxaban 20 mg tablet (Xarelto) 20 mg PO Q24H 05/20/25 06/01/25 History Patient hx anesthesia problems: none Family hx anesthesia problems: none Results Review: All pre-operative results and documents have been reviewed as part of the pre- operative evaluation. [facility] Past Medical History Medical History Squamous cell lung cancer Pulmonary embolism Impingement of right shoulder Right shoulder pain IFG (impaired fasting glucose) Dyslipidemia CRISTEL (obstructive sleep apnea) borderline - no CPAP Umbilical hernia without mention of obstruction or gangrene Tobacco abuse Surgical History Surgical History S/P lobectomy of lung right lower lobe wedge 12/08/24 History of eye surgery 35 years ago H/O umbilical hernia repair 04/06/21 Umbilical hernia repair with 6.6 cm Parietex underlay mesh Family History Family History Father Heart attack Malignant neoplasm of prostate Social History Social History Social History: Years smoked: 20 Smoking status: Former smoker Tobacco type: cigarettes Alcohol intake: current Substance use: never Substance use type: does not use Do You Feel Safe in your Home?: Yes Lack of Transportation: No Lack of Food: Never True Current Housing: I Have Housing Concerned About Future Housing: No Difficulty Paying Gas/Electric Bills: No Difficulty Paying for Meds: No Currently Unemployed: No Education: Don't Know Difficulty w/ Childcare or Family Care: No Living arrangements: with family Occupation/Education: occupation Additional occupation/education comments: [employer] Gender identity (if verbalized by the patient): Male Sexual Orientation (if Verbalized by the Patient): Straight or Heterosexual Spiritual care concerns: No Anes - Eval Final PreProcedure Day of Procedure 06/01/25 07:59 Patient weight: obese Heart: regular rate and rhythm Lungs: clear to auscultation Airway: Mallampati scale class II Neurological: alert and oriented Last oral intake: >/= 8 hours ASA classification: III Emergent: no Anesthetic plan: proceed Anesthesia type and monitoring: general GIVS and standard monitoring Results Review: All pre-operative results and documents have been reviewed as part of the pre- operative evaluation. Informed Consent: The patient's anesthetic plan and its attendant risks and benefits were discussed with the patient/family/POA. Questions were solicited and answers provided to the satisfaction of the patient/family/POA.
[2025-06-01 09:30] VITALS: BP 133/64; PULSE 64; RESP 20; TEMP 36.6; O2SAT 100
[2025-06-01] MEDS: LACTATED RINGERS 1,000 ML 150 ML IV CONT (09:38)
--- NOTE | 2025-06-01 10:44 | PM.IMHP ---
H&P: HPI History of Present Illness Date/Time: 06/01/25 10:44 Chief Complaint: screening for colorectal cancer Narrative: this is a 64-year-old man who presents for colonoscopy. His last colonoscopy was 10 years ago and was normal. He denies any hematochezia or melena. He denies any family history colon cancer. Review of Systems Review of Systems: All systems reviewed & are unremarkable except as noted in HPI and below Constitutional: Constitutional: Denies chills, Denies fever(s), Denies headache(s) and Denies weight loss Eyes: Eyes: Denies change in vision ENT: Denies dizziness, Denies headache(s), Denies neck mass and Denies throat swelling Cardiovascular: Cardiovascular: Denies chest pain, Denies lightheadedness and Denies dyspnea Respiratory: Respiratory: Denies cough, Denies dyspnea and Denies wheezing Gastrointestinal: Gastrointestinal: Denies abdominal pain, Denies change in bowel habits, Denies nausea and Denies vomiting Genitourinary: Genitourinary: Denies hematuria and Denies dysuria Musculoskeletal: Musculoskeletal: Reports as per HPI Integumentary/Breasts: Skin/Breast: Reports as per HPI Neurologic: Denies dizziness and Denies headache(s) Allergic/Immunologic: Allergic/Immunologic: Denies throat swelling and Denies wheezing [facility] Past Medical History Medical History Squamous cell lung cancer Pulmonary embolism Impingement of right shoulder Right shoulder pain IFG (impaired fasting glucose) Dyslipidemia CRISTEL (obstructive sleep apnea) borderline - no CPAP Umbilical hernia without mention of obstruction or gangrene Tobacco abuse Surgical History Surgical History S/P lobectomy of lung right lower lobe wedge 12/08/24 History of eye surgery 35 years ago H/O umbilical hernia repair 04/06/21 Umbilical hernia repair with 6.6 cm Parietex underlay mesh Family History Family History Father Heart attack Malignant neoplasm of prostate Social History Social History Social History: Years smoked: 20 Smoking status: Former smoker Tobacco type: cigarettes Alcohol intake: current Substance use: never Substance use type: does not use Do You Feel Safe in your Home?: Yes Lack of Transportation: No Lack of Food: Never True Current Housing: I Have Housing Concerned About Future Housing: No Difficulty Paying Gas/Electric Bills: No Difficulty Paying for Meds: No Currently Unemployed: No Education: Don't Know Difficulty w/ Childcare or Family Care: No Living arrangements: with family Occupation/Education: occupation Additional occupation/education comments: [employer] Gender identity (if verbalized by the patient): Male Sexual Orientation (if Verbalized by the Patient): Straight or Heterosexual Spiritual care concerns: No Meds Home Medications and Allergies Home Medications ?Medication ?Instructions ?Recorded ?Confirmed ?Type [id number] 1 cap PO Q8H PRN pain #30 caps 02/16/25 05/20/25 Rx 50 mg-300 mg-40 mg capsule rosuvastatin 5 mg tablet 5 mg PO DAILY #90 tabs 02/23/25 06/01/25 Rx ondansetron 4 mg disintegrating 4 mg PO 02/25/25 04/22/25 History tablet peg 3350-electrolytes 236 240 ml PO Q15M #4,000 mL 05/20/25 Rx gram-22.74 gram-6.74 gram-5.86 gram solution (Golytely) rivaroxaban 20 mg tablet (Xarelto) 20 mg PO Q24H 05/20/25 06/01/25 History Allergies Allergy/AdvReac Type Severity Reaction Status Date / Time Penicillins Allergy Mild Rash Verified 06/01/25 09:28 iohexol (From contrast - CT, Allergy Itching Verified 06/01/25 09:28 X-RAY) hayfever Allergy Mild Sneezing Uncoded 06/01/25 09:28 Vital Signs Vital Signs - 24 hr 06/01/25 09:30 Temperature 97.9 F Pulse Rate 64 Respiratory Rate 20 Blood Pressure 133/64 Pulse Oximetry 100 Oxygen Delivery Room Air Exam Const: General: no acute distress and alert Orientation/consciousness: patient oriented x3 HENMT: Head: normocephalic and atraumatic Ears: hearing grossly normal bilaterally Face/Nose/Sinus: Normal nares present Mouth: Yes Normal oral and palatal mucosa present Eyes: Periorbital: periorbital findings normal Sclera: sclerae normal EOM: EOMs intact bilaterally Neck: Neck: normal visual inspection, no lymphadenopathy and trachea midline Chest: Chest palpation & inspection: normal inspection of the chest Resp: Effort & Inspection: normal respiratory effort Auscultation: clear to auscultation bilaterally Cardio: Jugular venous distension: no JVD Rate: regular rate Rhythm: regular rhythm Heart sounds: S1 normal heart sound present and S2 normal heart sound present Peripheral pulses: Peripheral pulses 2+ throughout GI: Inspection: normal to inspection GI Palp: Yes Soft to palpation, No Tenderness to palpation present (GI), No Guarding due to palpation present (GI) and No Rebound tenderness present Percussion: Yes normal to percussion Auscultation: normal bowel sounds : General: Yes no CVA tenderness Back/Spine/Pelvis: Back: no CVA tenderness Neuro: General: patient oriented x3, no focal motor deficits and CN's II-XI intact bilaterally Cognition (Neuro): normal cognition Speech: normal speech Motor exam (neuro): 5/5 motor strength present throughout Extrem: General: capillary refill normal and no clubbing, cyanosis or edema Assessment and Plan Assessment and plan (1) Screening for colorectal cancer: Code(s): Z12.11 - Encounter for screening for malignant neoplasm of colon; Z12.12 - Encounter for screening for malignant neoplasm of rectum Status: Acute Assessment and Plan: I have recommended colonoscopy. I have discussed the procedure, risks, benefits, and alternatives. Questions were answered. Patient is agreeable to proceed.
[2025-06-01 11:11] VITALS: BP 130/78; PULSE 63; RESP 16; O2SAT 100
[2025-06-01 11:21] VITALS: BP 113/62; PULSE 59; RESP 17; O2SAT 100
[2025-06-01 11:31] VITALS: BP 130/78; PULSE 63; RESP 16; O2SAT 100
== END 2025-06-01 11:50 | disposition home or self-care (01) ==
PROVIDERS: PCP Family Medicine; Visit Provider Surgery
PROC: 0DJD8ZZ Inspection of Lower Intestinal Tract, Via Natural or Artificial Opening Endoscopic (ICD-10-PCS; CPT 45378; principal; 2025-06-01 10:30)
DX: Z12.11 Encounter for screening for malignant neoplasm of colon (principal); K57.30 Diverticulosis of large intestine without perforation or abscess without bleeding; E78.5 Hyperlipidemia, unspecified; G47.33 Obstructive sleep apnea (adult) (pediatric); E66.9 Obesity, unspecified; Z68.31 Body mass index [BMI] 31.0-31.9, adult; Z79.01 Long term (current) use of anticoagulants; Z98.890 Other specified postprocedural states; Z90.2 Acquired absence of lung [part of]; Z87.891 Personal history of nicotine dependence; Z87.19 Personal history of other diseases of the digestive system; Z85.118 Personal history of other malignant neoplasm of bronchus and lung; Z86.711 Personal history of pulmonary embolism; Z80.42 Family history of malignant neoplasm of prostate; Z82.49 Family history of ischemic heart disease and other diseases of the circulatory system
CPT/HCPCS: G0105; J2003; J2704; J7120

== ENCOUNTER 2025-07-05 14:23 | Emergency (ER) | payer MEDICARE, SELFPAY ==
--- NOTE | 2025-07-05 14:26 | ED.GENADULT ---
HPI - General Adult General Chief complaint: Wound/Laceration Stated complaint: Left Hand Finger Laceration Time Seen by Provider: 07/05/25 14:26 Source: patient Mode of arrival: ambulatory Limitations: no limitations History of Present Illness HPI narrative: 64-year-old male patient presents to the [facility] with complaints of laceration to the left pinky finger. Patient states he was out trimming some trees and accidentally cut his pinky finger distal tip with this years. Patient states he is actively getting immunotherapy for cancer at this time and is on blood thinners due to a blood clot from common complications from his treatment. Patient is unaware of in his last tetanus shot is. Related Data Home Medications ?Medication ?Instructions ?Recorded ?Confirmed ?Last Taken ?Type rivaroxaban 20 mg tablet (Xarelto) 20 mg PO Q24H 05/20/25 06/01/25 05/28/25 History Allergies Allergy/AdvReac Type Severity Reaction Status Date / Time Penicillins Allergy Mild Rash Verified 07/05/25 14:31 iohexol (From contrast - CT, Allergy Itching Verified 07/05/25 14:31 X-RAY) Review of Systems Review of Systems: CONSTITUTIONAL: Denies fever, chills, or sweats. EYES: Denies visual changes, redness, or discharge. ENT: Denies rhinorrhea, congestion, sore throat, or otalgia. CARDIOVASCULAR: Denies chest pain, palpitations, or edema. RESPIRATORY: Denies cough or dyspnea. GASTROINTESTINAL: Denies abdominal pain, nausea, vomiting, or diarrhea. GENITOURINARY: Denies dysuria or hematuria. SKIN: Denies rash or itching. Positive laceration to the tip of the left pinky finger MUSCULOSKELETAL: Denies back pain, joint pain, or myalgia. NEUROLOGIC: Denies headache, numbness, or weakness. PSYCHIATRIC: Denies anxiety or depression. [facility] Past Medical History Medical History Squamous cell lung cancer Pulmonary embolism Impingement of right shoulder Right shoulder pain IFG (impaired fasting glucose) Dyslipidemia CRISTEL (obstructive sleep apnea) borderline - no CPAP Umbilical hernia without mention of obstruction or gangrene Tobacco abuse Surgical History Surgical History S/P lobectomy of lung right lower lobe wedge 12/08/24 History of eye surgery 35 years ago H/O umbilical hernia repair 04/06/21 Umbilical hernia repair with 6.6 cm Parietex underlay mesh Family History Family History Father Heart attack Malignant neoplasm of prostate Social History Social History Social History: Years smoked: 20 Smoking status: Former smoker Tobacco type: cigarettes Alcohol intake: current Substance use: never Substance use type: does not use Do You Feel Safe in your Home?: Yes Lack of Transportation: No Lack of Food: Never True Current Housing: I Have Housing Concerned About Future Housing: No Difficulty Paying Gas/Electric Bills: No Difficulty Paying for Meds: No Currently Unemployed: No Education: Don't Know Difficulty w/ Childcare or Family Care: No Living arrangements: with family Occupation/Education: occupation Additional occupation/education comments: [employer] Gender identity (if verbalized by the patient): Male Sexual Orientation (if Verbalized by the Patient): Straight or Heterosexual Spiritual care concerns: No Comments At the time of my signature I agree with nursing past medical history, surgical, social, and family history. There is no relevant family history pertinent to the presenting complaint. Exam Narrative: GENERAL: Well-appearing, well-nourished, and in no acute distress. HEAD: Normocephalic, atraumatic. EYES: PERRLA and EOMI. ENT: Nares clear, no rhinorrhea or epistaxis. Mucous membranes moist. NECK: Supple. No lymphadenopathy CHEST: Clear to auscultation. No respiratory distress. HEART: Regular rate and rhythm. No murmur heard. Normal peripheral pulses. ABDOMEN: Soft, nontender, nondistended, normal active bowel sounds. EXTREMITIES: Normal range of motion. No edema. SKIN: Warm, dry, no rash. Patient has an avulsion laceration to the distal tip of the left pinky finger. There is active bleeding noted. There is nail involvement. NEURO: No focal deficits. Alert and oriented x3. Course Course Level of Care: Express Care Visit Vital Signs Vital signs: Vital Signs Temperature 36.8 C 07/05/25 14:35 Pulse Rate 78 07/05/25 14:35 Respiratory Rate 18 07/05/25 14:35 Blood Pressure 126/67 07/05/25 14:35 Pulse Oximetry 100 07/05/25 14:35 Oxygen Delivery Room Air 07/05/25 14:35 Temperature 36.8 C 07/05/25 14:35 Pulse Rate 78 07/05/25 14:35 Respiratory Rate 18 07/05/25 14:35 Blood Pressure 126/67 07/05/25 14:35 Pulse Oximetry 100 07/05/25 14:35 Oxygen Delivery Room Air 07/05/25 14:35 Vital signs reviewed. Procedures Laceration Laceration 1: Date: 07/05/25 Time: 15:22 Site: hand (Left pinky finger) Side (If applicable): left Size (cm): 2.5 Description: other (Avulsion) Depth: simple, single layer ====== Skin Level ====== ====== Subcutaneous Layer ====== ====== Muscle Layer ====== ====== Tendon Layer ====== Dressing: The left pinky finger was soaked and surgical scrub and saline. The area was taking out patted dry and the pressure was applied until bleed the bleeding had come to a minimum. About 3 layers of SurgiSeal was applied to the wound and wrapped with gauze and tube gauze dressing. Patient tolerated procedure well. Medical Decision Making MDM Narrative Medical decision making narrative: Plan of care for patient is to clean the wound, applied pressure to stop the bleeding may use surgical steel to apply to the wound as well. Update his tetanus shot today most likely will discharge him home with an oral antibiotic due to his current cancer treatment and the fact that he was cut with a dirty shot thought sharp object. Differential Diagnosis Differential Diagnosis: Differential diagnosis: Simple, intermediate, or complex laceration. Vital Signs Vital Signs: Vital Signs Temperature 36.8 C 07/05/25 14:35 Pulse Rate 78 07/05/25 14:35 Respiratory Rate 18 07/05/25 14:35 Blood Pressure 126/67 07/05/25 14:35 Pulse Oximetry 100 07/05/25 14:35 Oxygen Delivery Room Air 07/05/25 14:35 Temperature 36.8 C 07/05/25 14:35 Pulse Rate 78 07/05/25 14:35 Respiratory Rate 18 07/05/25 14:35 Blood Pressure 126/67 07/05/25 14:35 Pulse Oximetry 100 07/05/25 14:35 Oxygen Delivery Room Air 07/05/25 14:35 Critical Care Time Critical Care Time Critical Care Time: No Discharge Plan Discharge Clinical Impression: Avulsion of nail of left little finger Patient Disposition: Home Condition: Stable Instructions: Antibiotic Form, Laceration (ED) Additional Instructions: Keep the dressing on for at least 24 hours. After 24 hours you may remove the dressing but do not remove the SurgiSeal. The SurgiSeal will absorb on its own. Watch for signs and symptoms of infection including increased pain, redness streaking down the finger, fevers, body aches or chills. If any of these occur please follow-up with your primary doctor. Patient Language: Malawian Prescriptions: New clindamycin HCl [Cleocin HCl] 300 mg capsule 300 mg PO BID 7 Days Qty: 14 0RF clindamycin HCl [Cleocin HCl] 150 mg capsule 150 mg PO BID 7 Days Qty: 14 0RF No Action Xarelto 20 mg tablet 20 mg PO Q24H rosuvastatin 5 mg tablet 5 mg PO DAILY Qty: 90 1RF Follow-up/Referrals: Zeeshan Roberson MD [Primary Care Provider] - Time of Disposition: 15:22
[2025-07-05 14:35] VITALS: BP 126/67; PULSE 78; RESP 18; TEMP 36.8; O2SAT 100
[2025-07-05] MEDS: TETANUS,DIPHTHERIA,AC PERTUSSIS ADULT (0.5 ML) BOOSTRIX IM (15:02)
[2025-07-05] MEDS: CELLULOSE OXIDIZED 2 x 14 INCH 1 PKT XX (15:03)
== END 2025-07-05 15:30 | disposition home or self-care (01) ==
PROVIDERS: Emergency Provider Nurse Practitioner Family; PCP Family Medicine
DX: S61.317A Laceration without foreign body of left little finger with damage to nail, initial encounter (principal); W27.1XXA Contact with garden tool, initial encounter; Y93.H2 Activity, gardening and landscaping; Z23 Encounter for immunization; R73.01 Impaired fasting glucose; E78.5 Hyperlipidemia, unspecified; Z86.711 Personal history of pulmonary embolism; Z85.828 Personal history of other malignant neoplasm of skin; Z90.2 Acquired absence of lung [part of]; Z87.891 Personal history of nicotine dependence; Z79.01 Long term (current) use of anticoagulants
CPT/HCPCS: 90471; 90715; 99213; G0463